=== PATIENT | male | born 1955 | race African-American/Black ===

== ENCOUNTER 2016-09-04 17:22 | Inpatient (IN) | payer OTHER ==
[~2016-09-04] VITALS: Ht 175.3 cm; Wt 63.8 kg
[2016-09-04] MEDS ORDERED: METOPROLOL TAR100 M1 ORAL (17:26)
[2016-09-04] MEDS ORDERED: HYDRALAZINE HCL10 MG ORAL (17:26)
[2016-09-04] MEDS ORDERED: TRAMADOL HCL50 MG ORAL (17:26)
[2016-09-04] MEDS ORDERED: LOVENOX10 M3 SUBQ (17:26)
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
[2016-09-04] MEDS ORDERED: LORazepam Inj 2mg/ml 1ml IV ONE ×4 (17:45→20:00)
[2016-09-04 18:00] VITALS: BP 125/80
[2016-09-04 18:00] LABS: ABG ALLEN TEST POSITIVE; ABG BASE EXCESS -5.4; ABG PCO2 27.5 mmHg (35.0-45.0)
[2016-09-04 18:11] LABS: MEAN CORPUSCULAR HEMOGLOBIN 30.8 PG (27.0-31.0); MEAN CORPUSCULAR HGB CONC 33.2 G/DL (32.0-36.0); MEAN CORPUSCULAR VOLUME 93 FL (80-99); PLATELET COUNT 321 K/UL (150-450); RED BLOOD COUNT 3.02 M/UL (4.70-6.10); RED CELL DISTRIBUTION WIDTH 14.8 % (11.6-14.8)
[2016-09-04 18:28] LABS: TROPONIN I < 0.30 ng/mL (<=0.30)
[2016-09-04 18:32] LABS: ALBUMIN/GLOBULIN RATIO 0.9 (1.0-2.7); CALCIUM 10.3 mg/dL (8.6-10.2); GLOMERULAR FILTRATION RATE 41.6 mL/min (>60); POTASSIUM 4.5 mEQ/L (3.4-4.9); TOTAL PROTEIN 8.7 g/dL (6.6-8.7)
[2016-09-04 18:41] LABS: REFLEX LACTIC ACID YES OR NO YES
[2016-09-04 18:42] LABS: CKMB 2.6 ng/mL (< 6.7)
[2016-09-04] MEDS ORDERED: Acetaminophen 650 MG SUPP RECTAL ONE ×2 (18:45→18:47)
[2016-09-04] MEDS ORDERED: Meropenem 1 GM in NS 110 ML IVPB ONE (18:45)
[2016-09-04 18:48] LABS: APPEARANCE,URINE CLEAR; KETONES,URINE 1+ (NEGATIVE); LEUKOCYTE ESTERASE ,URINE 1+ (NEGATIVE); NITRITE,URINE NEGATIVE (NEGATIVE); PH,URINE 6 (4.5-8.0); PROTEIN,URINE 2+ (NEGATIVE); UROBILINOGEN,URINE NORMAL MG/DL (0.0-1.0)
[2016-09-04] MEDS ORDERED: Meropenem 1gm vial ONE (18:49)
[2016-09-04 18:54] LABS: RBC,URINE 0-2 /HPF (0 - 0); WBC,URINE 0-2 /HPF (0 - 0)
[2016-09-04 19:02] LABS: ANISOCYTOSIS 1+; BAND NEUTROPHILS % (MANUAL) 1 % (0-8); BASOPHILS % (MANUAL) 0 % (0-2); EOSINOPHILS % (MANUAL) 0 % (0-3); LYMPHOCYTES % (MANUAL) 9 % (20-45); NEUTROPHILS % (MANUAL) 85 % (45-75); PLATELET ESTIMATE ADEQUATE; POLYCHROMASIA 1+; TOTAL CELLS COUNTED 100
[2016-09-04 19:03] LABS: PLATELET MORPHOLOGY NORMAL
[2016-09-04] MEDS ORDERED: Haloperidol 5mg/ml Inj IM ONE (19:15)
[2016-09-04] MEDS ORDERED: Miralax 17gm pkt ORAL PRN (19:30)
[2016-09-04] MEDS ORDERED: DuoNeb 0.5-3(2.5)mg/3ml neb HHN PRN (19:30)
[2016-09-04] MEDS ORDERED: Haloperidol 5mg/ml Inj IVPB PRN (19:30)
[2016-09-04 19:48] VITALS: BP 133/155
[2016-09-04 20:03] VITALS: BP 133/155
[2016-09-04] MEDS ORDERED: METOPROLOL TART25 MG GT (20:14)
[2016-09-04] MEDS ORDERED: HYDRALAZINE HCL10 MG GT (20:14)
[2016-09-04] MEDS ORDERED: HIBICLENS118 ML ORAL (20:19)
[2016-09-04] MEDS ORDERED: TRAMADOL HCL50 MG GT (20:22)
[2016-09-04] MEDS ORDERED: Amikacin Rx to dose MISC PRN (20:45)
[2016-09-04] MEDS: D5NS 1,000 ML IV SCH (21:23)
[2016-09-04 21:30] VITALS: BP 119/70
[2016-09-04] MEDS: Heparin 5000 units/ml inj SUBQ SCH (21:31)
[2016-09-04] MEDS: Vancomycin 1 GM in D5W 275 ML IVPB SCH (21:44)
[2016-09-04 22:00] VITALS: BP 95/63
[2016-09-04] MEDS ORDERED: AMIKACIN IV SCH (22:00)
[2016-09-04] MEDS ORDERED: NS IV SCH (22:00)
[2016-09-04 23:00] VITALS: BP 115/59
[2016-09-05] VITALS (24 sets, daily range): BP systolic 91–157; BP diastolic 50–97
[2016-09-05] MEDS: LORazepam Inj 2mg/ml 1ml IV PRN ×6 (01:41→18:37)
[2016-09-05 05:10] LABS: BASOPHILS % (AUTO) 2.7 % (0.0-2.0); LYMPHOCYTES % (AUTO) 14.6 % (20.0-45.0); MEAN CORPUSCULAR HGB CONC 32.2 G/DL (32.0-36.0); MEAN CORPUSCULAR VOLUME 93 FL (80-99); MEAN PLATELET VOLUME 6.5 FL (6.5-10.1); MONOCYTES % (AUTO) 15.4 % (1.0-10.0); NEUTROPHILS % (AUTO) 67.3 % (45.0-75.0); PLATELET COUNT 312 K/UL (150-450); RED BLOOD COUNT 2.72 M/UL (4.70-6.10); RED CELL DISTRIBUTION WIDTH 14.7 % (11.6-14.8); WHITE BLOOD COUNT 12.8 K/UL (4.8-10.8)
[2016-09-05 05:28] LABS: INR 1.2 (0.9-1.1); PROTHROMBIN TIME 12.1 SEC (9.30-11.50)
[2016-09-05 05:41] LABS: ALBUMIN/GLOBULIN RATIO 0.8 (1.0-2.7); BILIRUBIN,DIRECT 0.1 mg/dL (0.1-0.3); CALCIUM 9.4 mg/dL (8.6-10.2); CREATININE 1.5 mg/dL (0.7-1.2); GLOMERULAR FILTRATION RATE 57.8 mL/min (>60); POTASSIUM 4.3 mEQ/L (3.4-4.9); TOTAL PROTEIN 8.3 g/dL (6.6-8.7)
[2016-09-05] MEDS: D5NS 1,000 ML IV SCH (05:41)
[2016-09-05] MEDS: Ertapenem 1 GM in NS 55 ML IV SCH (05:41)
[2016-09-05 05:43] LABS: HEMOLYSIS 2; IRON 31 ug/dL (59-158); TOTAL IRON BINDING CAPACITY 233 ug/dL (250-400)
[2016-09-05 06:02] LABS: REFLEX LACTIC ACID YES OR NO YES
[2016-09-05 06:48] LABS: LACTATE DEHYDROGENASE 581 U/L (135-230)
[2016-09-05] MEDS: Haloperidol Lactate 5 MG in D5W 55 ML IM PRN ×2 (07:54→09:53)
[2016-09-05 08:01] LABS: ABG PCO2 34.1 mmHg (35.0-45.0)
[2016-09-05] MEDS: Pantoprazole Inj IVP SCH (08:14)
[2016-09-05] MEDS: Morphine Sulfate 4mg/ml Inj IVP PRN ×2 (08:14→16:29)
[2016-09-05] MEDS: Heparin 5000 units/ml inj SUBQ SCH ×2 (08:15→20:31)
[2016-09-05 08:25] LABS: RETICULOCYTE COUNT 1.7 % (0.0-2.0)
[2016-09-05] MEDS: chlordiazePOXIDE 25mg Cap ORAL PRN (08:39)
--- NOTE | 2016-09-05 09:44 | Diagnostic Imaging Report ---
Indications: Altered metal status Technique: Spiral acquisitions obtained through the brain. Angled axial and coronal 5 x 5 mm slices were reconstructed. Total dose length product 2713 mGycm. CTDI vol(s) 70x3 mGy. Dose reduction achieved using automated exposure control Comparison: None Findings: Patient unable hold still, despite sedation. Despite multiple acquisitions, there is extensive image degradation due to motion artifact, rendering exam essentially nondiagnostic. No gross acute intracranial hemorrhage is demonstrated. No gross mass effect or midline shift. There is age-related enlargement of the ventricles and extra axial CSF spaces. No definite skull fracture. Visualized orbits and sinuses are grossly unremarkable. Impression: Essentially nondiagnostic exam due to motion artifacts. No gross acute intracranial bleed or mass effect. Age-related changes This agrees with the preliminary interpretation provided overnight by Dr. Machuca The CT scanner at [facility] is accredited by the [employer] and the scans are performed using protocols designed to limit radiation exposure to as low as reasonably achievable to attain images of sufficient resolution adequate for diagnostic evaluation.
--- NOTE | 2016-09-05 10:17 | Diagnostic Imaging Report ---
Indication: DYSPNEA Technique: One view of the chest Comparison: 09/04/2016 Findings: Patchy parenchymal throughout the left lung persists, and is unchanged. There may be trace pleural fluid on the left, likewise unchanged. There is suggestion of some upper lobe scarring on the right. There may be mild interstitial congestion on the right. The heart size is normal. Multiple left rib fractures are again demonstrated. No gross pneumothorax. Findings are unchanged Impression: Unchanged, over one day, findings as above.
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
[2016-09-05] MEDS ORDERED: Tubing IV Secondary IV ONE (10:43)
[2016-09-05] MEDS ORDERED: D5NS 1000ml IV ONE (10:43)
[2016-09-05 10:58] LABS: BAND NEUTROPHILS % (MANUAL) 0 % (0-8); BASOPHILS % (MANUAL) 2 % (0-2); EOSINOPHILS % (MANUAL) 0 % (0-3); LYMPHOCYTES % (MANUAL) 13 % (20-45); NEUTROPHILS % (MANUAL) 67 % (45-75); PLATELET ESTIMATE ADEQUATE; PLATELET MORPHOLOGY NORMAL; TOTAL CELLS COUNTED 100
[2016-09-05 10:59] LABS: HYPOCHROMASIA 1+
[2016-09-05 11:28] LABS: PATH BLOOD SMEAR/OMC SENT TO PATHOLOGIST
[2016-09-05] MEDS: Haloperidol Lactate 5 MG in D5W 55 ML IVPB PRN ×3 (11:54→18:37)
[2016-09-05] MEDS ORDERED: Folic Acid 1 MG, Magnesium Sulfate 2,000 MG, Multivitamin - 12 Injection 10 ML in NS w/... IV SCH (12:00)
[2016-09-05] MEDS: Thiamine HCl 100 MG in D5W 110 ML IVPB SCH (12:00)
--- NOTE | 2016-09-05 12:13 | Diagnostic Imaging Report ---
Indication: Abnormal renal function tests Technique: Grayscale and duplex images of the kidneys, retroperitoneum, and bladder were obtained. Comparison:None Findings: Right kidney measures 9.4 cm in length. Left kidney measures 10.7 cm in length. Both kidneys demonstrate normal echogenicity. No hydronephrosis. No focal abnormality. Normal inferior vena cava. Bladder is normal. Impression: negative.
--- NOTE | 2016-09-05 12:29 | Cardiology Report ---
APPROVED REPORT EKG Measurement Heart [id number] Sinus tachycardia Possible Left atrial enlargement Borderline ECG
--- NOTE | 2016-09-05 12:40 | Consultation ---
Consult Note Consult Note [id number] SUNG BREWER M.D. Sep 05, 2016 12:40
[2016-09-05 12:45] LABS: REFLEX LACTIC ACID YES OR NO YES
--- NOTE | 2016-09-05 13:38 | Diagnostic Imaging Report ---
Indication: Altered mental status Technique: One view of the chest Comparison: none Findings: There is pleural thickening on the left, both laterally and at the apex. There are multiple left rib fracture deformities of indeterminate acuity. There is interstitial and alveolar disease throughout the left lung. There is right apical volume loss and likely probable scarring. Right pleural space is clear. Heart size is normal Impression: Left lung parenchymal disease, as described, may reflect infiltrate, effusions, or chronic changes Multiple left fracture deformities, of indeterminate acuity. Correlate with clinical findings Left-sided pleural thickening, suspect chronic Evidence of chronic parenchymal scarring at the right lung apex
--- NOTE | 2016-09-05 16:09 | Diagnostic Imaging Report ---
Indication: ABD PAIN abnormal liver function tests Technique: Tan-scale and duplex images of the upper abdomen were obtained Comparison: None Findings: Gallbladder demonstrates no evidence of stones. Gallbladder wall is mildly thickened, measuring 5 mm thick. Sonographic Marin's sign is negative. Common bile duct measures 4 mm in diameter. No intrahepatic biliary ductal dilatation. Liver demonstrates normal echogenicity, no focal abnormality. Portal vein and hepatic veins are patent. Pancreas is incompletely visualized due to overlying bowel gas, visualized portions are unremarkable. Spleen is unremarkable. Left kidney measures 11.1 cm in length. Right kidney measures 9.3 cm length. Both kidneys demonstrate normal echogenicity. There is no hydronephrosis. No focal abnormality . Abdominal aorta is obscured by bowel gas . Impression: Negative for gallstones. However, there is mild gallbladder wall thickening. This could be reactive related to adjacent hepatocellular disease, but does raise possibility of acute acalculous cholecystitis. Consider nuclear medicine hepatobiliary scan if there is high clinical suspicion Negative for dilated ducts No other significant abnormality. Note inability to visualize the abdominal aorta and portions of the pancreas
[2016-09-05 19:23] LABS: REFLEX LACTIC ACID YES OR NO YES
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
[2016-09-05] MEDS: Vancomycin 1 GM in D5W 275 ML IVPB SCH (20:29)
[2016-09-05] MEDS: Iron Sucrose 100 MG in NS 55 ML IVPB SCH (20:30)
[2016-09-05] MEDS: AMIKACIN IV SCH (21:32)
[2016-09-05] MEDS: NS IV SCH (21:32)
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
[2016-09-06] VITALS (24 sets, daily range): BP systolic 121–185; BP diastolic 62–156
[2016-09-06] MEDS: D5NS 1,000 ML IV SCH ×2 (01:29→12:38)
[2016-09-06] MEDS: Morphine Sulfate 4mg/ml Inj IVP PRN ×2 (03:59→08:21)
[2016-09-06] MEDS: Haloperidol Lactate 5 MG in D5W 55 ML IVPB PRN ×3 (04:32→21:08)
[2016-09-06 05:13] LABS: MEAN CORPUSCULAR HEMOGLOBIN 30.7 PG (27.0-31.0); MEAN CORPUSCULAR HGB CONC 32.6 G/DL (32.0-36.0); MEAN CORPUSCULAR VOLUME 94 FL (80-99); MEAN PLATELET VOLUME 7.2 FL (6.5-10.1); PLATELET COUNT 246 K/UL (150-450); RED BLOOD COUNT 2.52 M/UL (4.70-6.10); RED CELL DISTRIBUTION WIDTH 14.9 % (11.6-14.8); WHITE BLOOD COUNT 14.5 K/UL (4.8-10.8)
[2016-09-06] MEDS: Ertapenem 1 GM in NS 55 ML IV SCH (05:37)
[2016-09-06] MEDS: chlordiazePOXIDE 25mg Cap ORAL PRN (05:41)
[2016-09-06] MEDS: LORazepam Inj 2mg/ml 1ml IV PRN ×3 (05:47→18:55)
[2016-09-06 06:06] LABS: ALANINE AMINOTRANSFERASE 26 U/L (3-41); ALBUMIN/GLOBULIN RATIO 0.7 (1.0-2.7); ANION GAP 18 (5-15); ASPARTATE AMINO TRANSFERASE 106 U/L (5-40); CALCIUM 9.2 mg/dL (8.6-10.2); CARBON DIOXIDE 17 mEQ/L (20-30); CHLORIDE 114 mEQ/L (98-107); CREATININE 1.1 mg/dL (0.7-1.2); GLOMERULAR FILTRATION RATE > 60 mL/min (>60); HEMOLYSIS 12; MAGNESIUM 2.4 mg/dL (1.7-2.5); PHOSPHORUS 3.1 mg/dL (2.5-4.8); POTASSIUM 4.1 mEQ/L (3.4-4.9); SODIUM 149 mEQ/L (135-145); TOTAL PROTEIN 7.9 g/dL (6.6-8.7)
[2016-09-06 06:07] LABS: REFLEX LACTIC ACID YES OR NO YES
[2016-09-06 08:15] LABS: ANISOCYTOSIS 1+; BAND NEUTROPHILS % (MANUAL) 0 % (0-8); BASOPHILS % (MANUAL) 0 % (0-2); EOSINOPHILS % (MANUAL) 2 % (0-3); HYPOCHROMASIA 1+; LYMPHOCYTES % (MANUAL) 9 % (20-45); NEUTROPHILS % (MANUAL) 84 % (45-75); PLATELET ESTIMATE ADEQUATE; PLATELET MORPHOLOGY NORMAL; POIKILOCYTOSIS 1+; TARGET CELLS OCCASIONAL; TOTAL CELLS COUNTED 100
[2016-09-06 08:16] LABS: POLYCHROMASIA OCCASIONAL
[2016-09-06] MEDS: Pantoprazole Inj IVP SCH (08:21)
[2016-09-06] MEDS: Heparin 5000 units/ml inj SUBQ SCH ×2 (08:22→20:44)
[2016-09-06 08:52] LABS: ABG PCO2 28.7 mmHg (35.0-45.0)
[2016-09-06 08:53] LABS: ABG ALLEN TEST POSITIVE; ABG BASE EXCESS -4.5
[2016-09-06] MEDS: Thiamine HCl 100 MG in D5W 110 ML IVPB SCH (09:29)
--- NOTE | 2016-09-06 10:47 | Pulmonolgy Critical Care Note ---
Critical Care - Asmt/Plan Problems: (1) Sepsis (2) Acute encephalopathy (3) Tachycardia (4) Lactic acidosis (5) Feeding by G-tube Respiratory: monitor respiratory rate, adjust FIO2, CXR, other - to be seen by ENT Yanna meek Cardiac: continue to monitor HR/BP, stress echo - echo results noted, to be seen by Cardiolgoy, dR. Kelly Renal: F/U I&O, keep IV fluid, check electrolytes Infectious Disease: check cultures, continue antibiotics Gastrointestinal: start feedings Endocrine: monitor blood sugar, check HgA1C Hematologic: monitor H/H Neurologic: PRN Ativan Affect: PRN ativan Prophylaxis: Protonix Notes Reviewed: accounting intern, cardio, renal Discussed with: nurses, consultants, case finishermarine service manager - Objective Last 24 Hour Vital Signs Date Time Temp Pulse Resp B/P Pulse Ox O2 Delivery O2 Flow Rate FiO2 09/06/16 10:00 135 28 139/87 100 Simple Mask 6.0 09/06/16 09:00 137 28 152/72 100 Nasal Cannula 3.0 09/06/16 08:50 99.3 09/06/16 08:00 99.3 140 26 150/72 98 Nasal Cannula 3.0 09/06/16 08:00 139 09/06/16 07:16 98 Nasal Cannula 3.0 32 09/06/16 07:16 Nasal Cannula 3.0 32 09/06/16 07:16 124 32 Nasal Cannula 3.0 32 09/06/16 07:00 137 28 142/92 100 Nasal Cannula 3.0 09/06/16 06:00 138 28 157/75 100 Nasal Cannula 3.0 09/06/16 05:00 137 43 121/64 100 Nasal Cannula 3.0 09/06/16 04:00 143 09/06/16 04:00 98.9 143 33 165/88 100 Nasal Cannula 3.0 09/06/16 03:00 140 46 184/156 100 Nasal Cannula 3.0 09/06/16 02:00 139 37 162/78 98 Nasal Cannula 3.0 09/06/16 01:00 137 33 142/79 96 Nasal Cannula 3.0 09/06/16 00:00 138 09/06/16 00:00 98.3 138 37 185/94 98 Nasal Cannula 3.0 09/05/16 23:00 135 37 156/77 98 Nasal Cannula 3.0 09/05/16 22:00 140 35 157/67 98 Nasal Cannula 3.0 09/05/16 21:00 98.7 138 32 140/83 96 Nasal Cannula 3.0 09/05/16 20:00 140 40 146/79 98 Nasal Cannula 3.0 09/05/16 20:00 140 09/05/16 19:00 Nasal Cannula 2.0 28 09/05/16 19:00 135 28 140/93 94 Nasal Cannula 3.0 09/05/16 18:59 97 Nasal Cannula 3.0 32 09/05/16 18:59 142 38 Nasal Cannula 3.0 32 09/05/16 18:00 138 28 139/79 95 Nasal Cannula 3.0 09/05/16 17:00 140 30 138/74 95 Nasal Cannula 3.0 09/05/16 16:00 136 09/05/16 16:00 98.9 132 26 134/82 100 Nasal Cannula 3.0 09/05/16 15:00 120 20 119/62 98 Nasal Cannula 3.0 09/05/16 14:00 121 24 129/70 98 Nasal Cannula 3.0 09/05/16 13:00 130 24 120/65 100 Nasal Cannula 3.0 09/05/16 12:00 99.1 133 26 151/94 100 Nasal Cannula 3.0 09/05/16 12:00 139 09/05/16 11:00 143 24 123/55 95 Nasal Cannula 3.0 09/05/16 10:50 99.3 Status: awake Condition: critical HEENT: atraumatic Neck: full ROM Lungs: chest wall tender Heart: regular Abdomen: non-tender, active bowel sounds, feeding tube Extremities: no C/C/E, edema Decubiti: stage Micro: Microbiology Date/Time Source Procedure Growth Status 09/04/16 17:45 Blood Blood Culture - Preliminary NO GROWTH AFTER 24 HOURS Resulted 09/04/16 17:45 Blood Blood Culture - Preliminary NO GROWTH AFTER 24 HOURS Resulted 09/05/16 17:00 Sputum Gram Stain Pending Resulted 09/05/16 17:00 Sputum Sputum Culture - Preliminary Resulted 09/05/16 17:00 Urine,Clean Catch Urine Culture - Preliminary NO GROWTH Resulted Accucheck: 76 Critical Care - Subjective ROS Limited/Unobtainable: No ICU Day: 3 Interval Events: still tachycardic, awake, confused Condition: critical EKG Rhythm: Sinus Rhythm FI02: 32 Sputum Amount: None I&O: Intake and Output 09/05/16 09/06/16 19:00 07:00 Intake Total 1766 ml 763.6 ml Output Total 1030 ml 1020 ml Balance 736 ml -256.4 ml IV Total 1766 ml 763.6 ml Output Urine Total 1030 ml 1020 ml CXR: unchanged, patchy infiltrate Labs: Laboratory Tests Test 09/05/16 12:00 09/05/16 18:52 09/06/16 04:30 09/06/16 04:45 Lactic Acid Level 3.40 mmol/L (0.66-2.22) H 2.10 mmol/L (0.66-2.22) 2.10 mmol/L (0.66-2.22) Random Amikacin Level 5.1 ug/mL White Blood Count 14.5 K/UL (4.8-10.8) H Red Blood Count 2.52 M/UL (4.70-6.10) L Hemoglobin 7.7 G/DL (14.2-18.0) L Hematocrit 23.7 % (42.0-52.0) L Mean Corpuscular Volume 94 FL (80-99) Mean Corpuscular Hemoglobin 30.7 PG (27.0-31.0) Mean Corpuscular Hemoglobin Concent 32.6 G/DL (32.0-36.0) Red Cell Distribution Width 14.9 % (11.6-14.8) H Platelet Count 246 K/UL (150-450) Mean Platelet Volume 7.2 FL (6.5-10.1) Neutrophils (%) (Auto) % (45.0-75.0) Lymphocytes (%) (Auto) % (20.0-45.0) Monocytes (%) (Auto) % (1.0-10.0) Eosinophils (%) (Auto) % (0.0-3.0) Basophils (%) (Auto) % (0.0-2.0) Differential Total Cells Counted 100 Neutrophils % (Manual) 84 % (45-75) H Lymphocytes % (Manual) 9 % (20-45) L Monocytes % (Manual) 5 % (1-10) Eosinophils % (Manual) 2 % (0-3) Basophils % (Manual) 0 % (0-2) Band Neutrophils 0 % (0-8) Platelet Estimate Adequate Platelet Morphology Normal Red Blood Cell Morphology Polychromasia Occasional Hypochromasia 1+ Poikilocytosis 1+ Anisocytosis 1+ Target Cells Occasional Sodium Level 149 mEQ/L (135-145) H Potassium Level 4.1 mEQ/L (3.4-4.9) Chloride Level 114 mEQ/L (98-107) H Carbon Dioxide Level 17 mEQ/L (20-30) L Anion Gap 18 (5-15) H Blood Urea Nitrogen 21 mg/dL (7-23) Creatinine 1.1 mg/dL (0.7-1.2) Estimat Glomerular Filtration Rate > 60 mL/min (>60) Glucose Level 115 mg/dL (74-106) H Calcium Level 9.2 mg/dL (8.6-10.2) Phosphorus Level 3.1 mg/dL (2.5-4.8) Magnesium Level 2.4 mg/dL (1.7-2.5) Total Bilirubin 0.3 mg/dL (0.0-1.2) Aspartate Amino Transf (AST/SGOT) 106 U/L (5-40) H Alanine Aminotransferase (ALT/SGPT) 26 U/L (3-41) Alkaline Phosphatase 157 U/L (40-129) H Total Protein 7.9 g/dL (6.6-8.7) Albumin 3.5 g/dL (3.5-5.2) Globulin 4.4 g/dL Albumin/Globulin Ratio 0.7 (1.0-2.7) L Test 09/06/16 08:42 09/06/16 09:20 Arterial Blood pH 7.438 (7.350-7.450) Arterial Blood Partial Pressure CO2 28.7 mmHg (35.0-45.0) L Arterial Blood Partial Pressure O2 65.1 mmHg (75.0-100.0) L Arterial Blood HCO3 19.0 mmol/L (22.0-26.0) L Arterial Blood Oxygen Saturation 90.0 % (92.0-98.0) L Arterial Blood Base Excess -4.5 Raul Test Positive Lactic Acid Level Pending ALLY MURRAY Sep 06, 2016 10:47
[2016-09-06] MEDS: Acetaminophen 650 MG SUPP RECTAL PRN ×2 (12:44→16:51)
[2016-09-06 13:28] LABS: ABG PCO2 31.3 mmHg (35.0-45.0)
[2016-09-06 13:29] LABS: ABG ALLEN TEST POSITIVE
[2016-09-06] MEDS: Morphine Sulfate 10mg/ml Inj IVP PRN (15:12)
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
--- NOTE | 2016-09-06 17:36 | Cardiology Progress Note ---
Assessment/Plan Assessment/Plan tachy sinus demand aand agitation realted [id number] Objective Last 24 Hour Vital Signs Date Time Temp Pulse Resp B/P Pulse Ox O2 Delivery O2 Flow Rate FiO2 09/06/16 17:00 101.1 130 30 153/78 100 Simple Mask 6.0 09/06/16 16:00 128 09/06/16 16:00 100.4 126 30 138/80 100 Simple Mask 6.0 09/06/16 15:40 100.4 09/06/16 15:00 128 28 154/62 100 Simple Mask 6.0 09/06/16 14:00 133 28 142/86 100 Simple Mask 6.0 09/06/16 13:10 101.2 09/06/16 13:00 101.2 132 24 132/95 98 Simple Mask 6.0 09/06/16 12:00 102.8 130 24 145/88 100 Simple Mask 6.0 09/06/16 12:00 132 09/06/16 11:00 132 24 137/95 100 Simple Mask 6.0 09/06/16 10:00 135 28 139/87 100 Simple Mask 6.0 09/06/16 09:00 137 28 152/72 100 Nasal Cannula 3.0 09/06/16 08:50 99.3 09/06/16 08:00 99.3 140 26 150/72 98 Nasal Cannula 3.0 09/06/16 08:00 139 09/06/16 07:16 98 Nasal Cannula 3.0 32 09/06/16 07:16 Nasal Cannula 3.0 32 09/06/16 07:16 124 32 Nasal Cannula 3.0 32 09/06/16 07:00 137 28 142/92 100 Nasal Cannula 3.0 09/06/16 06:00 138 28 157/75 100 Nasal Cannula 3.0 09/06/16 05:00 137 43 121/64 100 Nasal Cannula 3.0 09/06/16 04:00 143 09/06/16 04:00 98.9 143 33 165/88 100 Nasal Cannula 3.0 09/06/16 03:00 140 46 184/156 100 Nasal Cannula 3.0 09/06/16 02:00 139 37 162/78 98 Nasal Cannula 3.0 09/06/16 01:00 137 33 142/79 96 Nasal Cannula 3.0 09/06/16 00:00 138 09/06/16 00:00 98.3 138 37 185/94 98 Nasal Cannula 3.0 09/05/16 23:00 135 37 156/77 98 Nasal Cannula 3.0 09/05/16 22:00 140 35 157/67 98 Nasal Cannula 3.0 09/05/16 21:00 98.7 138 32 140/83 96 Nasal Cannula 3.0 09/05/16 20:00 140 40 146/79 98 Nasal Cannula 3.0 09/05/16 20:00 140 09/05/16 19:00 Nasal Cannula 2.0 28 09/05/16 19:00 135 28 140/93 94 Nasal Cannula 3.0 09/05/16 18:59 97 Nasal Cannula 3.0 32 09/05/16 18:59 142 38 Nasal Cannula 3.0 32 09/05/16 18:00 138 28 139/79 95 Nasal Cannula 3.0 Intake and Output 09/05/16 09/06/16 19:00 07:00 Intake Total 1766 ml 763.6 ml Output Total 1030 ml 1020 ml Balance 736 ml -256.4 ml IV Total 1766 ml 763.6 ml Output Urine Total 1030 ml 1020 ml Laboratory Tests Test 09/05/16 18:52 09/06/16 04:30 09/06/16 04:45 09/06/16 08:42 Lactic Acid Level 2.10 mmol/L (0.66-2.22) 2.10 mmol/L (0.66-2.22) White Blood Count 14.5 K/UL (4.8-10.8) H Red Blood Count 2.52 M/UL (4.70-6.10) L Hemoglobin 7.7 G/DL (14.2-18.0) L Hematocrit 23.7 % (42.0-52.0) L Mean Corpuscular Volume 94 FL (80-99) Mean Corpuscular Hemoglobin 30.7 PG (27.0-31.0) Mean Corpuscular Hemoglobin Concent 32.6 G/DL (32.0-36.0) Red Cell Distribution Width 14.9 % (11.6-14.8) H Platelet Count 246 K/UL (150-450) Mean Platelet Volume 7.2 FL (6.5-10.1) Neutrophils (%) (Auto) % (45.0-75.0) Lymphocytes (%) (Auto) % (20.0-45.0) Monocytes (%) (Auto) % (1.0-10.0) Eosinophils (%) (Auto) % (0.0-3.0) Basophils (%) (Auto) % (0.0-2.0) Differential Total Cells Counted 100 Neutrophils % (Manual) 84 % (45-75) H Lymphocytes % (Manual) 9 % (20-45) L Monocytes % (Manual) 5 % (1-10) Eosinophils % (Manual) 2 % (0-3) Basophils % (Manual) 0 % (0-2) Band Neutrophils 0 % (0-8) Platelet Estimate Adequate Platelet Morphology Normal Red Blood Cell Morphology Polychromasia Occasional Hypochromasia 1+ Poikilocytosis 1+ Anisocytosis 1+ Target Cells Occasional Sodium Level 149 mEQ/L (135-145) H Potassium Level 4.1 mEQ/L (3.4-4.9) Chloride Level 114 mEQ/L (98-107) H Carbon Dioxide Level 17 mEQ/L (20-30) L Anion Gap 18 (5-15) H Blood Urea Nitrogen 21 mg/dL (7-23) Creatinine 1.1 mg/dL (0.7-1.2) Estimat Glomerular Filtration Rate > 60 mL/min (>60) Glucose Level 115 mg/dL (74-106) H Calcium Level 9.2 mg/dL (8.6-10.2) Phosphorus Level 3.1 mg/dL (2.5-4.8) Magnesium Level 2.4 mg/dL (1.7-2.5) Total Bilirubin 0.3 mg/dL (0.0-1.2) Aspartate Amino Transf (AST/SGOT) 106 U/L (5-40) H Alanine Aminotransferase (ALT/SGPT) 26 U/L (3-41) Alkaline Phosphatase 157 U/L (40-129) H Total Protein 7.9 g/dL (6.6-8.7) Albumin 3.5 g/dL (3.5-5.2) Globulin 4.4 g/dL Albumin/Globulin Ratio 0.7 (1.0-2.7) L Arterial Blood pH 7.438 (7.350-7.450) Arterial Blood Partial Pressure CO2 28.7 mmHg (35.0-45.0) L Arterial Blood Partial Pressure O2 65.1 mmHg (75.0-100.0) L Arterial Blood HCO3 19.0 mmol/L (22.0-26.0) L Arterial Blood Oxygen Saturation 90.0 % (92.0-98.0) L Arterial Blood Base Excess -4.5 Raul Test Positive Test 09/06/16 09:20 09/06/16 13:10 Lactic Acid Level 2.00 mmol/L (0.66-2.22) Arterial Blood pH 7.400 (7.350-7.450) Arterial Blood Partial Pressure CO2 31.3 mmHg (35.0-45.0) L Arterial Blood Partial Pressure O2 101.6 mmHg (75.0-100.0) H Arterial Blood HCO3 19.1 mmol/L (22.0-26.0) L Arterial Blood Oxygen Saturation 97.1 % (92.0-98.0) Arterial Blood Base Excess -5.0 Raul Test Positive Microbiology Date/Time Source Procedure Growth Status 09/04/16 17:45 Blood Blood Culture - Preliminary NO GROWTH AFTER 24 HOURS Resulted 09/04/16 17:45 Blood Blood Culture - Preliminary NO GROWTH AFTER 24 HOURS Resulted 09/05/16 17:00 Sputum Gram Stain - Final Resulted 09/05/16 17:00 Sputum Sputum Culture - Preliminary Resulted 09/05/16 17:00 Urine,Clean Catch Urine Culture - Preliminary NO GROWTH Resulted KATERYNA COVARRUBIAS Sep 06, 2016 17:36
[2016-09-06 18:19] LABS: MEAN CORPUSCULAR HGB CONC 33.6 G/DL (32.0-36.0); MEAN CORPUSCULAR VOLUME 95 FL (80-99); MEAN PLATELET VOLUME 6.5 FL (6.5-10.1); PLATELET COUNT 210 K/UL (150-450); RED BLOOD COUNT 2.52 M/UL (4.70-6.10); RED CELL DISTRIBUTION WIDTH 15.4 % (11.6-14.8); WHITE BLOOD COUNT 19.4 K/UL (4.8-10.8)
[2016-09-06 18:20] LABS: BASOPHILS % (AUTO) 1.7 % (0.0-2.0); LYMPHOCYTES % (AUTO) 5.9 % (20.0-45.0); MONOCYTES % (AUTO) 9.5 % (1.0-10.0); NEUTROPHILS % (AUTO) 82.9 % (45.0-75.0)
[2016-09-06 18:33] LABS: ALANINE AMINOTRANSFERASE 25 U/L (3-41); ALBUMIN/GLOBULIN RATIO 0.7 (1.0-2.7); ANION GAP 14 (5-15); ASPARTATE AMINO TRANSFERASE 85 U/L (5-40); CALCIUM 9.1 mg/dL (8.6-10.2); CARBON DIOXIDE 22 mEQ/L (20-30); CHLORIDE 119 mEQ/L (98-107); CREATININE 0.9 mg/dL (0.7-1.2); GLOMERULAR FILTRATION RATE > 60 mL/min (>60); HEMOLYSIS 0; POTASSIUM 4.5 mEQ/L (3.4-4.9); SODIUM 155 mEQ/L (135-145); TOTAL PROTEIN 8.1 g/dL (6.6-8.7)
--- NOTE | 2016-09-06 19:15 | Procedure Note ---
SURGEON: Jairon Raines M.D. [employer]: None. ANESTHESIA: None. INDICATION FOR PROCEDURE: The patient pulled out his tracheostomy tube two days ago, seems to be stable, but is tachycardiac and I have been asked to evaluate the upper airway. PREOPERATIVE DIAGNOSIS: Upper airway is open without blockage. PREOPERATIVE DIAGNOSIS: Upper airway is open without blockage. FINDINGS: Although, he has some dried mucus, his vocal cords are moving poorly, is at midline, does not vocalize well. He does have a safe airway without any blockage at least to the vocal cords and I actually was able to pass the scope beyond that all way to visualize the aiden and it seemed okay to that point. PROCEDURE: Fiberoptic laryngoscopy. TECHNIQUE: The scope was placed through the mouth looking down at the oral airway and then the scope was pulled back. FINDINGS: As above. ESTIMATED BLOOD LOSS: Zero. COMPLICATIONS: None. DRAINS: None. Jairon Raines M.D. DR: CECI JOB#: [id number] CC:
--- NOTE | 2016-09-06 19:45 | Consultation ---
DATE OF CONSULTATION: 09/06/2016 HEAD AND NECK SURGERY/ENT CONSULTATION REFERRING PHYSICIAN: Vandana Tello M.D. CONSULTING PHYSICIAN: Jairon Raines M.D. INDICATION FOR CONSULTATION: The patient lives in a [facility], who has tachycardia status post removing his trach at the [facility]. His oxygenation is fine on room air, but they are concerned he may have some blockage in his airway leading to the issue of tachycardia. I did speak with Dr. Tello and he notes that the said he was intubated for respiratory difficulties with pneumonia and was not able to tolerate without a trach. It has now been two days without the trach and he seems to be doing fine and it is covered with an occlusive dressing. PAST MEDICAL HISTORY: Incomplete. What I can get from the record is his past medical history is significant for cardiac disorders, thrombolytics therapy, palpitations, hypertension, respiratory issues, chronic obstructive pulmonary disease, endocrine disorders, diabetes, alcohol use, and substance abuse. MEDICATIONS: His medications include Tylenol, morphine, amikacin, iron sucrose, folic acid, thiamine, lorazepam, haloperidol, lactate, Protonix, Librium, vancomycin, heparin 5000 units, amikacin, vancomycin, albuterol, MiraLAX, and Zofran. OBJECTIVE: HEENT: The patient is restrained in bed and not completely responsive. He do not seem to understand what I am saying to him. He is missing many teeth in his mouth. None on the upper maxilla. Ears, positive light reflex. Normal canals. Nose, normal. Mouth is very dry. He has a G-tube. Fiberoptic exam, his epiglottis is normal. His airway supraglottic yields a lot of dried mucus crust, but his airway is open. His vocal cords are not really moving well. So, I am not sure how I would feed him, although he seems to be handling wet secretions he does have. So, I would do a swallowing study first and check that. ASSESSMENT: His airway seems to be fine at the moment from what I can ascertain from the fiberoptic exam, and his chest x-ray, which would allow me to see below the vocal cords. He does have some parenchymal disease, which is separate. PLAN: I would recommend a swallowing study by speech pathology once he is more stable, although I think he does not need a trach at this time. Swallowing study would be for feeding reasons if you can proceed with that. Thank you very much for asking my opinion in the care and treatment on this patient. Jairon Raines M.D. DR: SHAYE JOB#: [id number] CC:
[2016-09-06] MEDS: Iron Sucrose 100 MG in NS 55 ML IVPB SCH (20:44)
[2016-09-06] MEDS: Vancomycin 1 GM in D5W 275 ML IVPB SCH (20:44)
[2016-09-06] MEDS: NS IV SCH (21:34)
[2016-09-06] MEDS: AMIKACIN IV SCH (21:34)
[2016-09-06] MEDS ORDERED: NS Irrig 2000ml IRRIG ONE (22:51)
[2016-09-06] MEDS ORDERED: D5NS 1000ml IV ONE (22:51)
[2016-09-06] MEDS ORDERED: Tubing IV Secondary IV ONE (22:51)
[2016-09-06] MEDS ORDERED: NS 275ml ONE (22:51)
[2016-09-07] VITALS (24 sets, daily range): BP systolic 96–163; BP diastolic 53–90
[2016-09-07] MEDS: Morphine Sulfate 10mg/ml Inj IVP PRN ×2 (00:06→15:09)
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
[2016-09-07] MEDS: D5NS 1,000 ML IV SCH (01:32)
[2016-09-07] MEDS: LORazepam Inj 2mg/ml 1ml IV PRN ×2 (01:39→15:08)
[2016-09-07] MEDS: Ertapenem 1 GM in NS 55 ML IV SCH (05:35)
[2016-09-07 06:45] LABS: MEAN CORPUSCULAR HEMOGLOBIN 30.4 PG (27.0-31.0); MEAN CORPUSCULAR HGB CONC 31.4 G/DL (32.0-36.0); MEAN CORPUSCULAR VOLUME 97 FL (80-99); MEAN PLATELET VOLUME 6.9 FL (6.5-10.1); PLATELET COUNT 219 K/UL (150-450); RED BLOOD COUNT 2.75 M/UL (4.70-6.10); RED CELL DISTRIBUTION WIDTH 15.5 % (11.6-14.8); WHITE BLOOD COUNT 19.5 K/UL (4.8-10.8)
[2016-09-07 06:57] LABS: ALANINE AMINOTRANSFERASE 24 U/L (3-41); ALBUMIN/GLOBULIN RATIO 0.7 (1.0-2.7); ANION GAP 13 (5-15); ASPARTATE AMINO TRANSFERASE 74 U/L (5-40); CALCIUM 8.9 mg/dL (8.6-10.2); CARBON DIOXIDE 23 mEQ/L (20-30); CHLORIDE 117 mEQ/L (98-107); CREATININE 0.8 mg/dL (0.7-1.2); GLOMERULAR FILTRATION RATE > 60 mL/min (>60); HEMOLYSIS 3; MAGNESIUM 2.2 mg/dL (1.7-2.5); PHOSPHORUS 3.1 mg/dL (2.5-4.8); POTASSIUM 4.3 mEQ/L (3.4-4.9); SODIUM 153 mEQ/L (135-145); TOTAL PROTEIN 7.7 g/dL (6.6-8.7)
[2016-09-07] MEDS: Pantoprazole Inj IVP SCH (08:41)
[2016-09-07] MEDS: Heparin 5000 units/ml inj SUBQ SCH ×2 (08:42→20:42)
[2016-09-07 09:12] LABS: BAND NEUTROPHILS % (MANUAL) 4 % (0-8); LYMPHOCYTES % (MANUAL) 10 % (20-45); NEUTROPHILS % (MANUAL) 76 % (45-75); TOTAL CELLS COUNTED 100
[2016-09-07 09:13] LABS: ANISOCYTOSIS 1+; BASOPHILS % (MANUAL) 0 % (0-2); EOSINOPHILS % (MANUAL) 0 % (0-3); HYPOCHROMASIA 1+; PLATELET ESTIMATE ADEQUATE; PLATELET MORPHOLOGY NORMAL
--- NOTE | 2016-09-07 09:25 | Diagnostic Imaging Report ---
Indication: DYSPNEA Technique: XRAY CHEST 1 V Comparison:09/06/2016 Findings: Compared previous examination bilateral airspace disease is increasing. The right hemidiaphragm is partially obscured. The cardio mediastinal silhouette is unchanged. Impression: Increasing bilateral airspace disease consistent with pneumonia or edema.
--- NOTE | 2016-09-07 11:44 | Consultation ---
Consult Note Assessment/Plan Renal consult dictated # [id number] KEVIN STARR Sep 07, 2016 11:44
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
--- NOTE | 2016-09-07 16:00 | Pulmonolgy Critical Care Note ---
Critical Care - Asmt/Plan Problems: (1) Sepsis (2) Acute encephalopathy (3) Tachycardia (4) Lactic acidosis (5) Feeding by G-tube Respiratory: monitor respiratory rate, adjust FIO2, CXR, other - ENT note appreciated Cardiac: continue to monitor HR/BP Renal: F/U I&O, keep IV fluid, check electrolytes Infectious Disease: check cultures Gastrointestinal: continue feedings/current rate Endocrine: monitor blood sugar, check HgA1C, continue sliding scale insulin Hematologic: monitor H/H, transfuse if hgb<8.5 Neurologic: PRN Ativan, PRN Morphine, keep patient comfortable Affect: PRN ativan Prophylaxis: Protonix Notes Reviewed: cardio, renal Discussed with: nurses, consultants, case technicianarea loss prevention manager - Objective Last 24 Hour Vital Signs Date Time Temp Pulse Resp B/P Pulse Ox O2 Delivery O2 Flow Rate FiO2 09/07/16 15:39 99.7 09/07/16 15:00 112 25 139/83 98 Simple Mask 6.0 09/07/16 14:00 99.4 106 18 131/64 100 Simple Mask 6.0 09/07/16 13:00 108 22 120/79 98 Simple Mask 6.0 09/07/16 12:00 112 09/07/16 12:00 99.1 110 22 145/76 100 Simple Mask 6.0 09/07/16 11:30 99.4 09/07/16 11:00 100.2 102 18 101/53 98 Simple Mask 6.0 09/07/16 10:00 108 22 126/79 98 Simple Mask 6.0 09/07/16 09:00 105 18 124/89 100 Simple Mask 6.0 09/07/16 08:00 97.6 98 24 122/66 100 Simple Mask 6.0 09/07/16 08:00 98 09/07/16 07:24 Nasal Cannula 3.0 32 09/07/16 07:24 100 Nasal Cannula 3.0 32 09/07/16 07:24 100 18 Nasal Cannula 3.0 32 09/07/16 07:00 99 26 106/68 100 Simple Mask 6.0 09/07/16 06:00 126 26 145/83 100 Simple Mask 6.0 09/07/16 05:00 100 26 103/65 100 Simple Mask 6.0 09/07/16 04:00 100 09/07/16 04:00 98.3 97 26 96/66 100 Simple Mask 6.0 09/07/16 03:00 111 26 157/87 100 Simple Mask 6.0 09/07/16 02:00 111 26 157/87 100 Simple Mask 6.0 09/07/16 01:00 97.8 128 24 153/60 100 Simple Mask 6.0 09/07/16 00:00 125 26 163/90 100 Simple Mask 6.0 09/07/16 00:00 123 09/06/16 23:00 99.7 132 24 167/104 100 Simple Mask 6.0 09/06/16 22:00 98.7 123 24 154/82 100 Simple Mask 6.0 09/06/16 21:00 99.0 123 24 165/97 100 Simple Mask 6.0 09/06/16 20:00 100.0 128 26 149/91 100 Simple Mask 6.0 09/06/16 20:00 127 09/06/16 19:00 139 28 165/82 100 Simple Mask 6.0 09/06/16 18:00 100.0 136 30 126/77 100 Simple Mask 6.0 09/06/16 17:21 101.0 09/06/16 17:00 101.1 130 30 153/78 100 Simple Mask 6.0 09/06/16 16:00 128 09/06/16 16:00 100.4 126 30 138/80 100 Simple Mask 6.0 Status: awake Condition: critical HEENT: atraumatic Neck: full ROM Lungs: chest wall tender Heart: HR/BP stable Abdomen: non-tender, feeding tube Extremities: edema Micro: Microbiology Date/Time Source Procedure Growth Status 09/04/16 17:45 Blood Blood Culture - Preliminary NO GROWTH AFTER 48 HOURS Resulted 09/04/16 17:45 Blood Blood Culture - Preliminary NO GROWTH AFTER 48 HOURS Resulted 09/05/16 17:00 Sputum Gram Stain - Final Complete 09/05/16 17:00 Sputum Sputum Culture - Final NORMAL UPPER RESPIRATORY SRIDHAR AT 48 ... Complete 09/04/16 19:17 Nasal Not Otherwise Specified MRSA Culture - Final NO METHICILLIN RESISTANT STAPH AUREUS... Complete 09/05/16 17:00 Urine,Clean Catch Urine Culture - Final Complete 09/04/16 19:17 Rectum VRE Culture - Final Enterococcus Faecalis - Vre Complete Accucheck: 76 Critical Care - Subjective ROS Limited/Unobtainable: No Condition: critical EKG Rhythm: Sinus Rhythm FI02: 32 Sputum Amount: None Tube Feeding Amount: 20 I&O: Intake and Output 09/06/16 09/07/16 19:00 07:00 Intake Total 817 ml 1700.4 ml Output Total 2350 ml 965 ml Balance -1533 ml 735.4 ml IV Total 817 ml 1640.4 ml Other 60 ml Output Urine Total 2350 ml 965 ml CXR: no change Labs: Laboratory Tests Test 09/06/16 18:05 09/07/16 04:15 09/07/16 09:34 White Blood Count 19.4 K/UL (4.8-10.8) H 19.5 K/UL (4.8-10.8) H Red Blood Count 2.52 M/UL (4.70-6.10) L 2.75 M/UL (4.70-6.10) L Hemoglobin 8.1 G/DL (14.2-18.0) L 8.4 G/DL (14.2-18.0) L Hematocrit 24.0 % (42.0-52.0) L 26.7 % (42.0-52.0) L Mean Corpuscular Volume 95 FL (80-99) 97 FL (80-99) Mean Corpuscular Hemoglobin 32.0 PG (27.0-31.0) H 30.4 PG (27.0-31.0) Mean Corpuscular Hemoglobin Concent 33.6 G/DL (32.0-36.0) 31.4 G/DL (32.0-36.0) L Red Cell Distribution Width 15.4 % (11.6-14.8) H 15.5 % (11.6-14.8) H Platelet Count 210 K/UL (150-450) 219 K/UL (150-450) Mean Platelet Volume 6.5 FL (6.5-10.1) 6.9 FL (6.5-10.1) Neutrophils (%) (Auto) 82.9 % (45.0-75.0) H % (45.0-75.0) Lymphocytes (%) (Auto) 5.9 % (20.0-45.0) L % (20.0-45.0) Monocytes (%) (Auto) 9.5 % (1.0-10.0) % (1.0-10.0) Eosinophils (%) (Auto) 0.0 % (0.0-3.0) % (0.0-3.0) Basophils (%) (Auto) 1.7 % (0.0-2.0) % (0.0-2.0) Sodium Level 155 mEQ/L (135-145) H 153 mEQ/L (135-145) H Potassium Level 4.5 mEQ/L (3.4-4.9) 4.3 mEQ/L (3.4-4.9) Chloride Level 119 mEQ/L (98-107) H 117 mEQ/L (98-107) H Carbon Dioxide Level 22 mEQ/L (20-30) 23 mEQ/L (20-30) Anion Gap 14 (5-15) 13 (5-15) Blood Urea Nitrogen 15 mg/dL (7-23) 13 mg/dL (7-23) Creatinine 0.9 mg/dL (0.7-1.2) 0.8 mg/dL (0.7-1.2) Estimat Glomerular Filtration Rate > 60 mL/min (>60) > 60 mL/min (>60) Glucose Level 144 mg/dL (74-106) H 108 mg/dL (74-106) H Calcium Level 9.1 mg/dL (8.6-10.2) 8.9 mg/dL (8.6-10.2) Total Bilirubin 0.4 mg/dL (0.0-1.2) 0.4 mg/dL (0.0-1.2) Aspartate Amino Transf (AST/SGOT) 85 U/L (5-40) H 74 U/L (5-40) H Alanine Aminotransferase (ALT/SGPT) 25 U/L (3-41) 24 U/L (3-41) Alkaline Phosphatase 157 U/L (40-129) H 175 U/L (40-129) H Total Protein 8.1 g/dL (6.6-8.7) 7.7 g/dL (6.6-8.7) Albumin 3.4 g/dL (3.5-5.2) L 3.2 g/dL (3.5-5.2) L Globulin 4.7 g/dL 4.5 g/dL Albumin/Globulin Ratio 0.7 (1.0-2.7) L 0.7 (1.0-2.7) L Differential Total Cells Counted 100 Neutrophils % (Manual) 76 % (45-75) H Lymphocytes % (Manual) 10 % (20-45) L Monocytes % (Manual) 10 % (1-10) Eosinophils % (Manual) 0 % (0-3) Basophils % (Manual) 0 % (0-2) Band Neutrophils 4 % (0-8) Platelet Estimate Adequate Platelet Morphology Normal Hypochromasia 1+ Anisocytosis 1+ Phosphorus Level 3.1 mg/dL (2.5-4.8) Magnesium Level 2.2 mg/dL (1.7-2.5) Arterial Blood pH 7.360 (7.350-7.450) Arterial Blood Partial Pressure CO2 45.0 mmHg (35.0-45.0) Arterial Blood Partial Pressure O2 66.0 mmHg (75.0-100.0) L Arterial Blood HCO3 24.5 mmol/L (22.0-26.0) Arterial Blood Oxygen Saturation 90.0 % (92.0-98.0) L Arterial Blood Base Excess -1.0 Raul Test ALLY MURRAY Sep 07, 2016 15:59
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
[2016-09-07] MEDS ORDERED: Tubing Blood Filter IV ONE (17:23)
[2016-09-07] MEDS ORDERED: NS 275ml ONE (17:23)
[2016-09-07] MEDS ORDERED: Tubing IV Secondary IV ONE (17:23)
[2016-09-07] MEDS ORDERED: D5NS 1000ml IV ONE (17:23)
--- NOTE | 2016-09-07 18:26 | Cardiology Progress Note ---
Assessment/Plan Assessment/Plan reviewed echo patient's tachycardia is most likely due to sepsis will monitor Subjective Subjective the patient is letharcig and confused he is not answering questions and not following commands Objective Last 24 Hour Vital Signs Date Time Temp Pulse Resp B/P Pulse Ox O2 Delivery O2 Flow Rate FiO2 09/07/16 18:00 100.3 110 22 128/73 100 Simple Mask 6.0 09/07/16 17:55 100.2 09/07/16 17:00 109 22 121/58 100 Simple Mask 6.0 09/07/16 16:00 99.6 101 25 102/59 98 Simple Mask 6.0 09/07/16 16:00 102 09/07/16 15:39 99.7 09/07/16 15:00 112 25 139/83 98 Simple Mask 6.0 09/07/16 14:00 99.4 106 18 131/64 100 Simple Mask 6.0 09/07/16 13:00 108 22 120/79 98 Simple Mask 6.0 09/07/16 12:00 112 09/07/16 12:00 99.1 110 22 145/76 100 Simple Mask 6.0 09/07/16 11:00 100.2 102 18 101/53 98 Simple Mask 6.0 09/07/16 10:00 108 22 126/79 98 Simple Mask 6.0 09/07/16 09:00 105 18 124/89 100 Simple Mask 6.0 09/07/16 08:00 97.6 98 24 122/66 100 Simple Mask 6.0 09/07/16 08:00 98 09/07/16 07:24 Nasal Cannula 3.0 32 09/07/16 07:24 100 Nasal Cannula 3.0 32 09/07/16 07:24 100 18 Nasal Cannula 3.0 32 09/07/16 07:00 99 26 106/68 100 Simple Mask 6.0 09/07/16 06:00 126 26 145/83 100 Simple Mask 6.0 09/07/16 05:00 100 26 103/65 100 Simple Mask 6.0 09/07/16 04:00 100 09/07/16 04:00 98.3 97 26 96/66 100 Simple Mask 6.0 09/07/16 03:00 111 26 157/87 100 Simple Mask 6.0 09/07/16 02:00 111 26 157/87 100 Simple Mask 6.0 09/07/16 01:00 97.8 128 24 153/60 100 Simple Mask 6.0 09/07/16 00:00 125 26 163/90 100 Simple Mask 6.0 09/07/16 00:00 123 09/06/16 23:00 99.7 132 24 167/104 100 Simple Mask 6.0 09/06/16 22:00 98.7 123 24 154/82 100 Simple Mask 6.0 09/06/16 21:00 99.0 123 24 165/97 100 Simple Mask 6.0 09/06/16 20:00 100.0 128 26 149/91 100 Simple Mask 6.0 09/06/16 20:00 127 09/06/16 19:00 139 28 165/82 100 Simple Mask 6.0 General Appearance: lethargic EENT: PERRL/EOMI Neck: other - there is post trach opening covered with gauze Rhythm: NSR Cardiovascular: normal rate, tachycardia Abdomen: soft Extremities: no swelling Intake and Output 09/06/16 09/07/16 19:00 07:00 Intake Total 817 ml 1700.4 ml Output Total 2350 ml 965 ml Balance -1533 ml 735.4 ml IV Total 817 ml 1640.4 ml Other 60 ml Output Urine Total 2350 ml 965 ml Laboratory Tests Test 09/07/16 04:15 09/07/16 09:34 White Blood Count 19.5 K/UL (4.8-10.8) H Red Blood Count 2.75 M/UL (4.70-6.10) L Hemoglobin 8.4 G/DL (14.2-18.0) L Hematocrit 26.7 % (42.0-52.0) L Mean Corpuscular Volume 97 FL (80-99) Mean Corpuscular Hemoglobin 30.4 PG (27.0-31.0) Mean Corpuscular Hemoglobin Concent 31.4 G/DL (32.0-36.0) L Red Cell Distribution Width 15.5 % (11.6-14.8) H Platelet Count 219 K/UL (150-450) Mean Platelet Volume 6.9 FL (6.5-10.1) Neutrophils (%) (Auto) % (45.0-75.0) Lymphocytes (%) (Auto) % (20.0-45.0) Monocytes (%) (Auto) % (1.0-10.0) Eosinophils (%) (Auto) % (0.0-3.0) Basophils (%) (Auto) % (0.0-2.0) Differential Total Cells Counted 100 Neutrophils % (Manual) 76 % (45-75) H Lymphocytes % (Manual) 10 % (20-45) L Monocytes % (Manual) 10 % (1-10) Eosinophils % (Manual) 0 % (0-3) Basophils % (Manual) 0 % (0-2) Band Neutrophils 4 % (0-8) Platelet Estimate Adequate Platelet Morphology Normal Hypochromasia 1+ Anisocytosis 1+ Sodium Level 153 mEQ/L (135-145) H Potassium Level 4.3 mEQ/L (3.4-4.9) Chloride Level 117 mEQ/L (98-107) H Carbon Dioxide Level 23 mEQ/L (20-30) Anion Gap 13 (5-15) Blood Urea Nitrogen 13 mg/dL (7-23) Creatinine 0.8 mg/dL (0.7-1.2) Estimat Glomerular Filtration Rate > 60 mL/min (>60) Glucose Level 108 mg/dL (74-106) H Calcium Level 8.9 mg/dL (8.6-10.2) Phosphorus Level 3.1 mg/dL (2.5-4.8) Magnesium Level 2.2 mg/dL (1.7-2.5) Total Bilirubin 0.4 mg/dL (0.0-1.2) Aspartate Amino Transf (AST/SGOT) 74 U/L (5-40) H Alanine Aminotransferase (ALT/SGPT) 24 U/L (3-41) Alkaline Phosphatase 175 U/L (40-129) H Total Protein 7.7 g/dL (6.6-8.7) Albumin 3.2 g/dL (3.5-5.2) L Globulin 4.5 g/dL Albumin/Globulin Ratio 0.7 (1.0-2.7) L Arterial Blood pH 7.360 (7.350-7.450) Arterial Blood Partial Pressure CO2 45.0 mmHg (35.0-45.0) Arterial Blood Partial Pressure O2 66.0 mmHg (75.0-100.0) L Arterial Blood HCO3 24.5 mmol/L (22.0-26.0) Arterial Blood Oxygen Saturation 90.0 % (92.0-98.0) L Arterial Blood Base Excess -1.0 Raul Test Microbiology Date/Time Source Procedure Growth Status 09/05/16 17:00 Sputum Gram Stain - Final Complete 09/05/16 17:00 Sputum Sputum Culture - Final NORMAL UPPER RESPIRATORY SRIDHAR AT 48 ... Complete 09/04/16 19:17 Nasal Not Otherwise Specified MRSA Culture - Final NO METHICILLIN RESISTANT STAPH AUREUS... Complete 09/05/16 17:00 Urine,Clean Catch Urine Culture - Final Complete 09/04/16 19:17 Rectum VRE Culture - Final Enterococcus Faecalis - Vre Complete DEBORAH FRANCISCO Sep 07, 2016 18:26
[2016-09-07] MEDS: Meropenem 1 GM in NS 110 ML IVPB SCH (20:10)
[2016-09-07] MEDS: Iron Sucrose 100 MG in NS 55 ML IVPB SCH (20:39)
[2016-09-07] MEDS: Vancomycin 1 GM in D5W 275 ML IVPB SCH (20:47)
[2016-09-08] VITALS (18 sets, daily range): BP systolic 109–157; BP diastolic 62–90
[2016-09-08] MEDS: Meropenem 1 GM in NS 110 ML IVPB SCH ×3 (03:31→20:00)
[2016-09-08 05:03] LABS: MEAN CORPUSCULAR HEMOGLOBIN 30.7 PG (27.0-31.0); MEAN CORPUSCULAR HGB CONC 32.1 G/DL (32.0-36.0); MEAN CORPUSCULAR VOLUME 96 FL (80-99); MEAN PLATELET VOLUME 6.6 FL (6.5-10.1); PLATELET COUNT 203 K/UL (150-450); RED BLOOD COUNT 2.47 M/UL (4.70-6.10); WHITE BLOOD COUNT 15.2 K/UL (4.8-10.8)
[2016-09-08 05:27] LABS: ALANINE AMINOTRANSFERASE 19 U/L (3-41); ALBUMIN/GLOBULIN RATIO 0.6 (1.0-2.7); ANION GAP 11 (5-15); ASPARTATE AMINO TRANSFERASE 36 U/L (5-40); CALCIUM 9.1 mg/dL (8.6-10.2); CARBON DIOXIDE 25 mEQ/L (20-30); CHLORIDE 114 mEQ/L (98-107); CREATININE 0.7 mg/dL (0.7-1.2); GLOMERULAR FILTRATION RATE > 60 mL/min (>60); HEMOLYSIS 1; POTASSIUM 3.8 mEQ/L (3.4-4.9); SODIUM 150 mEQ/L (135-145); TOTAL PROTEIN 7.1 g/dL (6.6-8.7)
[2016-09-08] MEDS: LORazepam Inj 2mg/ml 1ml IV PRN ×4 (08:26→20:46)
[2016-09-08] MEDS: Vancomycin 1 GM in D5W 275 ML IVPB SCH ×2 (08:26→21:30)
[2016-09-08] MEDS: Pantoprazole Inj IVP SCH (08:26)
[2016-09-08] MEDS: Heparin 5000 units/ml inj SUBQ SCH ×2 (08:28→21:35)
--- NOTE | 2016-09-08 08:40 | Infectious Diseases Prog Note ---
Assessment/Plan Assessment/Plan A; Sepsis Pneumonia VRE colonization DM Anemia History of polysubstance abuse P: Continue the patient on IV vancomycin, Levaquin and Merrem Subjective ROS Limited/Unobtainable: Yes Constitutional: Reports: fever, other - low grade Neurologic: Reports: confusion, other - on restraint Allergies: Coded Allergies: No Known Allergies (Unverified , 09/04/16) Objective Vital Signs Last 24 Hour Vital Signs Date Time Temp Pulse Resp B/P Pulse Ox O2 Delivery O2 Flow Rate FiO2 09/08/16 08:00 98.9 101 18 130/68 100 Simple Mask 6.0 09/08/16 08:00 101 09/08/16 07:43 93 17 Venturi Mask 14.0 55 09/08/16 07:42 Venturi Mask 14.0 55 09/08/16 07:41 100 Venturi Mask 14.0 55 09/08/16 07:00 98 18 109/68 100 Venturi Mask 65 09/08/16 06:38 99.3 09/08/16 06:00 106 18 111/68 100 Venturi Mask 65 09/08/16 05:00 108 22 132/82 100 Venturi Mask 65 09/08/16 04:00 99.2 108 19 124/75 100 Venturi Mask 65 09/08/16 04:00 103 09/08/16 03:00 102 17 114/77 100 Venturi Mask 65 09/08/16 02:00 98.3 95 19 110/85 100 Venturi Mask 65 09/08/16 01:00 99.0 95 19 123/63 100 Venturi Mask 65 09/08/16 00:00 99.2 114 19 157/78 100 Venturi Mask 65 09/08/16 00:00 106 09/07/16 23:00 106 20 115/78 100 Venturi Mask 65 09/07/16 22:00 118 20 136/72 100 Simple Mask 6.0 09/07/16 21:00 99.3 121 19 120/80 100 Simple Mask 6.0 09/07/16 20:00 99.3 101 19 123/78 100 Simple Mask 6.0 09/07/16 20:00 124 09/07/16 19:46 100 Simple Mask 8.0 50 09/07/16 19:46 Simple Mask 8.0 50 09/07/16 19:44 112 21 Simple Mask 8.0 09/07/16 19:00 100.4 109 20 121/64 100 Simple Mask 6.0 09/07/16 18:00 100.3 110 22 128/73 100 Simple Mask 6.0 09/07/16 17:00 109 22 121/58 100 Simple Mask 6.0 09/07/16 16:00 99.6 101 25 102/59 98 Simple Mask 6.0 09/07/16 16:00 102 09/07/16 15:39 99.7 09/07/16 15:00 112 25 139/83 98 Simple Mask 6.0 09/07/16 14:00 99.4 106 18 131/64 100 Simple Mask 6.0 09/07/16 13:00 108 22 120/79 98 Simple Mask 6.0 09/07/16 12:00 112 09/07/16 12:00 99.1 110 22 145/76 100 Simple Mask 6.0 09/07/16 11:00 100.2 102 18 101/53 98 Simple Mask 6.0 09/07/16 10:00 108 22 126/79 98 Simple Mask 6.0 09/07/16 09:00 105 18 124/89 100 Simple Mask 6.0 Height (Feet): 5 Height (Inches): 9.00 Weight (Pounds): 159 HEENT: other - tracheostomy site covered Respiratory/Chest: lungs clear, other - O2 by mask Cardiovascular: tachycardia Abdomen: soft, non tender, other - GT feeding Extremities: no edema Neurologic/Psychiatric: disoriented Microbiology Date/Time Source Procedure Growth Status 09/05/16 17:00 Sputum Gram Stain - Final Complete 09/05/16 17:00 Sputum Sputum Culture - Final NORMAL UPPER RESPIRATORY SRIDHAR AT 48 ... Complete 09/05/16 17:00 Urine,Clean Catch Urine Culture - Final Complete Laboratory Tests Test 09/07/16 09:34 09/07/16 18:00 09/07/16 19:55 09/08/16 04:30 Arterial Blood pH 7.360 (7.350-7.450) Arterial Blood Partial Pressure CO2 45.0 mmHg (35.0-45.0) Arterial Blood Partial Pressure O2 66.0 mmHg (75.0-100.0) L Arterial Blood HCO3 24.5 mmol/L (22.0-26.0) Arterial Blood Oxygen Saturation 90.0 % (92.0-98.0) L Arterial Blood Base Excess -1.0 Raul Test Legionella pneumophila Group 1 Ab Pending Legionella pneumophilia IgM Group 1 Pending Urine Legionella Antigen Pending Vancomycin Level Trough 3.3 ug/mL (5.0-12.0) L White Blood Count 15.2 K/UL (4.8-10.8) H Red Blood Count 2.47 M/UL (4.70-6.10) L Hemoglobin 7.6 G/DL (14.2-18.0) L Hematocrit 23.6 % (42.0-52.0) L Mean Corpuscular Volume 96 FL (80-99) Mean Corpuscular Hemoglobin 30.7 PG (27.0-31.0) Mean Corpuscular Hemoglobin Concent 32.1 G/DL (32.0-36.0) Red Cell Distribution Width 15.0 % (11.6-14.8) H Platelet Count 203 K/UL (150-450) Mean Platelet Volume 6.6 FL (6.5-10.1) Neutrophils (%) (Auto) % (45.0-75.0) Lymphocytes (%) (Auto) % (20.0-45.0) Monocytes (%) (Auto) % (1.0-10.0) Eosinophils (%) (Auto) % (0.0-3.0) Basophils (%) (Auto) % (0.0-2.0) Sodium Level 150 mEQ/L (135-145) H Potassium Level 3.8 mEQ/L (3.4-4.9) Chloride Level 114 mEQ/L (98-107) H Carbon Dioxide Level 25 mEQ/L (20-30) Anion Gap 11 (5-15) Blood Urea Nitrogen 10 mg/dL (7-23) Creatinine 0.7 mg/dL (0.7-1.2) Estimat Glomerular Filtration Rate > 60 mL/min (>60) Glucose Level 105 mg/dL (74-106) Calcium Level 9.1 mg/dL (8.6-10.2) Total Bilirubin 0.2 mg/dL (0.0-1.2) Aspartate Amino Transf (AST/SGOT) 36 U/L (5-40) Alanine Aminotransferase (ALT/SGPT) 19 U/L (3-41) Alkaline Phosphatase 133 U/L (40-129) H Pro-B-Type Natriuretic Peptide 877 pg/mL (0-125) H Total Protein 7.1 g/dL (6.6-8.7) Albumin 2.9 g/dL (3.5-5.2) L Globulin 4.2 g/dL Albumin/Globulin Ratio 0.6 (1.0-2.7) L Current Medications Medications (Trade) Dose Ordered Sig/Cesar Route PRN Reason Start Time Stop Time Status Last Admin Dose Admin Acetaminophen (Tylenol) 650 mg Q4H PRN RECTAL Prn Headache/Temp > 101 09/06/16 12:45 10/06/16 12:44 09/06/16 16:51 Acetaminophen 650 mg 650 mg Q4H PRN ORAL Mild Pain 09/06/16 15:45 10/06/16 15:44 09/08/16 05:39 Albuterol/ Ipratropium (DuoNeb 0.5-3(2.5)mg/3ml) 3 ml Q4H PRN HHN Shortness of Breath 09/04/16 19:30 09/09/16 19:29 Chlordiazepoxide 25 mg 25 mg Q6H PRN ORAL Delirium Tremens 09/05/16 07:30 09/12/16 07:29 09/06/16 05:41 Haloperidol Lactate/Dextrose (Haldol/D5W) 56 ml @ 112 mls/hr Q1H PRN IVPB Agitation 09/05/16 09:30 10/05/16 09:29 09/06/16 21:08 Heparin Sodium (Porcine) (Heparin 5000 units/ml) 5,000 units EVERY 12 HOURS SUBQ 09/04/16 21:00 10/04/16 20:59 09/08/16 08:28 Iron Sucrose/ Sodium Chloride (Venofer/Sodium Chloride) 60 ml @ 240 mls/hr BEDTIME IVPB 09/05/16 21:00 09/09/16 21:14 09/07/16 20:39 Levofloxacin 150 ml @ 100 mls/hr Q24H IVPB 09/07/16 18:30 09/14/16 18:29 09/07/16 19:03 Lorazepam 2 mg 2 mg Q1H PRN IV For Anxiety 09/05/16 10:54 09/12/16 10:53 09/08/16 08:26 Meropenem 1 gm/ Sodium Chloride 110 ml @ 220 mls/hr Q8HR@0400,1200,2000 IVPB 09/07/16 20:00 09/12/16 19:59 09/08/16 03:31 Morphine Sulfate (Morphine Sulfate) 6 mg Q4H PRN IVP Severe Pain (Pain Scale 7-10) 09/06/16 11:30 09/13/16 11:29 09/07/16 15:09 Ondansetron HCl (Zofran) 4 mg Q6H PRN IVP Nausea & Vomiting 09/04/16 19:30 10/04/16 19:29 Pantoprazole (Protonix) 40 mg DAILY IVP 09/05/16 09:00 10/05/16 08:59 09/08/16 08:26 Polyethylene Glycol (Miralax) 17 gm DAILYPRN PRN ORAL Constipation 09/04/16 19:30 10/04/16 19:29 Vancomycin HCl (Vanco rx to dose) 1 ea DAILY PRN MISC per rx protocol 09/04/16 20:45 10/04/16 20:44 Vancomycin HCl/ Dextrose (Vancomycin/D5W) 275 ml @ 183.3 mls/ hr Q12HR IVPB 09/07/16 21:00 09/09/16 20:59 09/08/16 08:26 TASHI STARR Sep 08, 2016 08:40
[2016-09-08] MEDS: Morphine Sulfate 10mg/ml Inj IVP PRN ×2 (10:45→16:43)
[2016-09-08] MEDS ORDERED: Tubing IV Secondary IV ONE (11:11)
[2016-09-08] MEDS ORDERED: NS 275ml ONE (11:11)
--- NOTE | 2016-09-08 11:23 | Nephrology Progress Note ---
Assessment/Plan Problem List: (1) Hypernatremia Assessment: better (2) Hypoglycemia (3) Anemia Assessment: worse Plan cont with water flushes follow labs check iron panel Subjective Subjective In NAD Objective Objective Last 24 Hour Vital Signs Date Time Temp Pulse Resp B/P Pulse Ox O2 Delivery O2 Flow Rate FiO2 09/08/16 11:00 99.1 102 22 118/69 100 Simple Mask 6.0 09/08/16 10:00 104 20 133/62 100 Simple Mask 6.0 09/08/16 09:00 102 20 119/69 100 Simple Mask 6.0 09/08/16 08:00 98.9 101 18 130/68 100 Simple Mask 6.0 09/08/16 08:00 101 09/08/16 07:43 93 17 Venturi Mask 14.0 55 09/08/16 07:42 Venturi Mask 14.0 55 09/08/16 07:41 100 Venturi Mask 14.0 55 09/08/16 07:00 98 18 109/68 100 Venturi Mask 65 09/08/16 06:38 99.3 09/08/16 06:00 106 18 111/68 100 Venturi Mask 65 09/08/16 05:00 108 22 132/82 100 Venturi Mask 65 09/08/16 04:00 99.2 108 19 124/75 100 Venturi Mask 65 09/08/16 04:00 103 09/08/16 03:00 102 17 114/77 100 Venturi Mask 65 09/08/16 02:00 98.3 95 19 110/85 100 Venturi Mask 65 09/08/16 01:00 99.0 95 19 123/63 100 Venturi Mask 65 09/08/16 00:00 99.2 114 19 157/78 100 Venturi Mask 65 09/08/16 00:00 106 09/07/16 23:00 106 20 115/78 100 Venturi Mask 65 09/07/16 22:00 118 20 136/72 100 Simple Mask 6.0 09/07/16 21:00 99.3 121 19 120/80 100 Simple Mask 6.0 09/07/16 20:00 99.3 101 19 123/78 100 Simple Mask 6.0 09/07/16 20:00 124 09/07/16 19:46 100 Simple Mask 8.0 50 09/07/16 19:46 Simple Mask 8.0 50 09/07/16 19:44 112 21 Simple Mask 8.0 09/07/16 19:00 100.4 109 20 121/64 100 Simple Mask 6.0 09/07/16 18:00 100.3 110 22 128/73 100 Simple Mask 6.0 09/07/16 17:00 109 22 121/58 100 Simple Mask 6.0 09/07/16 16:00 99.6 101 25 102/59 98 Simple Mask 6.0 09/07/16 16:00 102 09/07/16 15:39 99.7 09/07/16 15:00 112 25 139/83 98 Simple Mask 6.0 09/07/16 14:00 99.4 106 18 131/64 100 Simple Mask 6.0 09/07/16 13:00 108 22 120/79 98 Simple Mask 6.0 09/07/16 12:00 112 09/07/16 12:00 99.1 110 22 145/76 100 Simple Mask 6.0 Intake and Output 09/07/16 09/08/16 19:00 07:00 Intake Total 1240 ml 1865 ml Output Total 860 ml 835 ml Balance 380 ml 1030 ml Free Water 750 ml 900 ml IV Total 340 ml 705 ml Tube Feeding 100 ml 260 ml Other 50 ml Output Urine Total 860 ml 835 ml Laboratory Tests 09/07/16 18:00: Legionella pneumophila Group 1 Ab [Pending], Legionella pneumophilia IgM Group 1 [Pending], Urine Legionella Antigen [Pending] 09/07/16 19:55: Vancomycin Level Trough 3.3L 09/08/16 04:30: White Blood Count 15.2H, Red Blood Count 2.47L, Hemoglobin 7.6L, Hematocrit 23.6L, Mean Corpuscular Volume 96, Mean Corpuscular Hemoglobin 30.7, Mean Corpuscular Hemoglobin Concent 32.1, Red Cell Distribution Width 15.0H, Platelet Count 203, Mean Platelet Volume 6.6, Neutrophils (%) (Auto) , Lymphocytes (%) (Auto) , Monocytes (%) (Auto) , Eosinophils (%) (Auto) , Basophils (%) (Auto) , Sodium Level 150H, Potassium Level 3.8, Chloride Level 114H, Carbon Dioxide Level 25, Anion Gap 11, Blood Urea Nitrogen 10, Creatinine 0.7, Estimat Glomerular Filtration Rate > 60, Glucose Level 105, Calcium Level 9.1, Total Bilirubin 0.2, Aspartate Amino Transf (AST/SGOT) 36, Alanine Aminotransferase (ALT/SGPT) 19, Alkaline Phosphatase 133H, Pro-B-Type Natriuretic Peptide 877H, Total Protein 7.1, Albumin 2.9L, Globulin 4.2, Albumin /Globulin Ratio 0.6L Height (Feet): 5 Height (Inches): 9.00 Weight (Pounds): 159 Cardiovascular: normal rate Respiratory/Chest: rhonchi - bilaterally Extremities: moderate edema KEVIN STARR Sep 08, 2016 11:23
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
[2016-09-08] MEDS ORDERED: Haloperidol Lactate 5 MG in D5W 55 ML IVPB PRN (18:30)
[2016-09-08] MEDS ORDERED: Morphine Sulfate 10mg/ml Inj IVP PRN (19:30)
[2016-09-08] MEDS ORDERED: Miralax 17gm pkt ORAL PRN (19:30)
[2016-09-08] MEDS ORDERED: chlordiazePOXIDE 25mg Cap ORAL PRN (19:30)
[2016-09-08] MEDS ORDERED: DuoNeb 0.5-3(2.5)mg/3ml neb HHN PRN (19:30)
--- NOTE | 2016-09-08 20:26 | Cardiology Progress Note ---
Assessment/Plan Assessment/Plan continue treatment of infection also severe anemia Subjective Subjective remains lethargic is not communicating Objective Last 24 Hour Vital Signs Date Time Temp Pulse Resp B/P Pulse Ox O2 Delivery O2 Flow Rate FiO2 09/08/16 17:13 99.8 09/08/16 16:00 98 09/08/16 16:00 100.2 108 24 129/72 100 Simple Mask 6.0 09/08/16 15:00 119 20 140/90 100 Simple Mask 6.0 09/08/16 14:00 99.1 104 18 130/80 100 Simple Mask 6.0 09/08/16 13:00 102 20 120/62 100 Simple Mask 6.0 09/08/16 12:00 100 09/08/16 12:00 98.7 100 18 128/69 98 Simple Mask 6.0 09/08/16 11:00 99.1 102 22 118/69 100 Simple Mask 6.0 09/08/16 10:00 104 20 133/62 100 Simple Mask 6.0 09/08/16 09:00 102 20 119/69 100 Simple Mask 6.0 09/08/16 08:00 98.9 101 18 130/68 100 Simple Mask 6.0 09/08/16 08:00 101 09/08/16 07:43 93 17 Venturi Mask 14.0 55 09/08/16 07:42 Venturi Mask 14.0 55 09/08/16 07:41 100 Venturi Mask 14.0 55 09/08/16 07:00 98 18 109/68 100 Venturi Mask 65 09/08/16 06:38 99.3 09/08/16 06:00 106 18 111/68 100 Venturi Mask 65 09/08/16 05:00 108 22 132/82 100 Venturi Mask 65 09/08/16 04:00 99.2 108 19 124/75 100 Venturi Mask 65 09/08/16 04:00 103 09/08/16 03:00 102 17 114/77 100 Venturi Mask 65 09/08/16 02:00 98.3 95 19 110/85 100 Venturi Mask 65 09/08/16 01:00 99.0 95 19 123/63 100 Venturi Mask 65 09/08/16 00:00 99.2 114 19 157/78 100 Venturi Mask 65 09/08/16 00:00 106 09/07/16 23:00 106 20 115/78 100 Venturi Mask 65 09/07/16 22:00 118 20 136/72 100 Simple Mask 6.0 09/07/16 21:00 99.3 121 19 120/80 100 Simple Mask 6.0 General Appearance: lethargic EENT: PERRL/EOMI, other - pale Neck: other - trach, covered Rhythm: NSR, ST Cardiovascular: regular rhythm Respiratory/Chest: rhonchi - bilaterally Abdomen: soft Intake and Output 09/07/16 09/08/16 19:00 07:00 Intake Total 1240 ml 1865 ml Output Total 860 ml 835 ml Balance 380 ml 1030 ml Free Water 750 ml 900 ml IV Total 340 ml 705 ml Tube Feeding 100 ml 260 ml Other 50 ml Output Urine Total 860 ml 835 ml Laboratory Tests Test 09/08/16 04:30 White Blood Count 15.2 K/UL (4.8-10.8) H Red Blood Count 2.47 M/UL (4.70-6.10) L Hemoglobin 7.6 G/DL (14.2-18.0) L Hematocrit 23.6 % (42.0-52.0) L Mean Corpuscular Volume 96 FL (80-99) Mean Corpuscular Hemoglobin 30.7 PG (27.0-31.0) Mean Corpuscular Hemoglobin Concent 32.1 G/DL (32.0-36.0) Red Cell Distribution Width 15.0 % (11.6-14.8) H Platelet Count 203 K/UL (150-450) Mean Platelet Volume 6.6 FL (6.5-10.1) Neutrophils (%) (Auto) % (45.0-75.0) Lymphocytes (%) (Auto) % (20.0-45.0) Monocytes (%) (Auto) % (1.0-10.0) Eosinophils (%) (Auto) % (0.0-3.0) Basophils (%) (Auto) % (0.0-2.0) Sodium Level 150 mEQ/L (135-145) H Potassium Level 3.8 mEQ/L (3.4-4.9) Chloride Level 114 mEQ/L (98-107) H Carbon Dioxide Level 25 mEQ/L (20-30) Anion Gap 11 (5-15) Blood Urea Nitrogen 10 mg/dL (7-23) Creatinine 0.7 mg/dL (0.7-1.2) Estimat Glomerular Filtration Rate > 60 mL/min (>60) Glucose Level 105 mg/dL (74-106) Calcium Level 9.1 mg/dL (8.6-10.2) Total Bilirubin 0.2 mg/dL (0.0-1.2) Aspartate Amino Transf (AST/SGOT) 36 U/L (5-40) Alanine Aminotransferase (ALT/SGPT) 19 U/L (3-41) Alkaline Phosphatase 133 U/L (40-129) H Pro-B-Type Natriuretic Peptide 877 pg/mL (0-125) H Total Protein 7.1 g/dL (6.6-8.7) Albumin 2.9 g/dL (3.5-5.2) L Globulin 4.2 g/dL Albumin/Globulin Ratio 0.6 (1.0-2.7) L DEBORAH FRANCISCO Sep 08, 2016 20:26
[2016-09-08] MEDS ORDERED: Acetaminophen 650 MG SUPP RECTAL PRN (20:45)
[2016-09-08] MEDS: Iron Sucrose 100 MG in NS 55 ML IVPB SCH (21:00)
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
[2016-09-09 00:12] VITALS: BP 118/80
[2016-09-09 04:26] VITALS: BP 123/73
[2016-09-09] MEDS: Meropenem 1 GM in NS 110 ML IVPB SCH ×3 (04:35→20:07)
[2016-09-09] MEDS: LORazepam Inj 2mg/ml 1ml IV PRN (04:35)
[2016-09-09 08:02] VITALS: BP 144/83
[2016-09-09 08:25] LABS: BASOPHILS % (AUTO) 1.1 % (0.0-2.0); EOSINOPHILS % (AUTO) 2.3 % (0.0-3.0); LYMPHOCYTES % (AUTO) 4.8 % (20.0-45.0); MEAN CORPUSCULAR HEMOGLOBIN 30.2 PG (27.0-31.0); MEAN CORPUSCULAR HGB CONC 31.9 G/DL (32.0-36.0); MEAN CORPUSCULAR VOLUME 95 FL (80-99); MEAN PLATELET VOLUME 6.8 FL (6.5-10.1); MONOCYTES % (AUTO) 9.3 % (1.0-10.0); NEUTROPHILS % (AUTO) 82.5 % (45.0-75.0); PLATELET COUNT 236 K/UL (150-450); RED BLOOD COUNT 3.24 M/UL (4.70-6.10); RED CELL DISTRIBUTION WIDTH 14.8 % (11.6-14.8); WHITE BLOOD COUNT 11.4 K/UL (4.8-10.8)
[2016-09-09 08:38] LABS: ALANINE AMINOTRANSFERASE 16 U/L (3-41); ALBUMIN/GLOBULIN RATIO 0.6 (1.0-2.7); ANION GAP 9 (5-15); ASPARTATE AMINO TRANSFERASE 20 U/L (5-40); CALCIUM 9.4 mg/dL (8.6-10.2); CARBON DIOXIDE 28 mEQ/L (20-30); CHLORIDE 107 mEQ/L (98-107); CREATININE 0.7 mg/dL (0.7-1.2); GLOMERULAR FILTRATION RATE > 60 mL/min (>60); HEMOLYSIS 4; MAGNESIUM 1.8 mg/dL (1.7-2.5); PHOSPHORUS 3.2 mg/dL (2.5-4.8); POTASSIUM 3.8 mEQ/L (3.4-4.9); SODIUM 144 mEQ/L (135-145); TOTAL PROTEIN 7.1 g/dL (6.6-8.7)
[2016-09-09 08:47] LABS: HEMOLYSIS 20; IRON 25 ug/dL (59-158); TOTAL IRON BINDING CAPACITY 141 ug/dL (250-400)
[2016-09-09] MEDS: Pantoprazole Inj IVP SCH (09:11)
[2016-09-09] MEDS: Vancomycin 1 GM in D5W 275 ML IVPB SCH (09:12)
[2016-09-09] MEDS: Heparin 5000 units/ml inj SUBQ SCH ×2 (09:13→21:18)
--- NOTE | 2016-09-09 09:13 | Diagnostic Imaging Report ---
Indication: Dyspnea Comparison: 09/05/16 A single view chest radiograph was obtained. Findings: Patchy ill-defined infiltrates noted bilaterally unchanged. Heart size is stable. Impression: No significant exchange mechanic the last 24
--- NOTE | 2016-09-09 09:15 | Diagnostic Imaging Report ---
Indication: DYSPNEA Technique: XRAY CHEST 1 V. Comparison: 09/07/2016 Findings: The cardiomediastinal silhouette is unchanged. Increasing infiltrate is noted in the right mid and lower lung. There is also increasing infiltrate in the left lower lung. The density is noted in the left upper lobe surrounded by lucency. Pleural thickening is also noted in the left upper lobe. Impression: Increasing bilateral pulmonary infiltrates. This may represent pulmonary edema or pneumonia. Density in the left upper lobe with surrounding lucency. The possibility of a fungus ball within a cavity or other cavitary lesion with contained debris should be strongly considered. Further evaluation with CT of the chest is suggested.
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
[2016-09-09 11:33] VITALS: BP 103/75
--- NOTE | 2016-09-09 15:17 | Diagnostic Imaging Report ---
Clinical Indication: COUGH Technique: Spiral acquisitions obtained through the chest. No IV contrast utilized, reason not stated. Multiplanar reconstructions generated. Total dose length product 79 mGycm. CTDIvol(s) 17 mGy. Dose reduction achieved using automated exposure control Comparison: Reference made to prior chest radiographs Findings:In the left upper lobe, confirming findings suspected on previous chest radiographs, there is a 4.3 cm diameter thickwalled cavity, containing a 3.4 cm round opacity the inferior borders of the cavity demonstrate scarring and some bronchiectasis. In the right upper lobe, there is a smaller 18 mm diameter thickwalled cavity, with a central 9 mm nodule. Bullous changes are seen in both upper lobes. There is extensive bronchiectasis is seen in the right upper lobe. Large areas of honeycombing are seen in the posterior right upper lobe in the right middle lobe, and throughout much of the right lower lobe. Confluent opacities with air bronchograms are also seen in much of the right lower lobe. Honeycombing is also seen in the posterior left upper lobe. Reticular opacities in the left lower lobe may also represent areas of honeycombing, although this is less definite. There is considerable posterior dependent atelectasis and small bilateral pleural effusions. There is also thickening or fluid within the bilateral major fissures. Small bulla are seen in the right lung apex The heart is borderline enlarged. No pericardial effusion demonstrated. No mediastinal or hilar mass or adenopathy. Calcified nodes are seen in the subcarinal region. Right paratracheal nodes are prominent but not frankly enlarged. No thoracic aortic aneurysm. The main pulmonary artery is dilated, measures 4 cm in diameter. The thyroid is diffusely heterogeneous. No axillary or chest wall mass or adenopathy demonstrated, although there are prominent axillary nodes bilaterally. Multiple left rib fracture deformities are demonstrated, some ununited or incompletely united. There is fairly extensive degenerative thoracic spondylosis. The included upper, viscera are unremarkable except for the presence of a gastrostomy tube. Impression: 4.3 cm thick walled cavity in the left upper lobe with central large nodule, consistent with cavitary lesion, cyst or bulla containing a fungus ball Similar smaller 18 mm cavity with central nodule in the right upper lobe, likewise also probably a cavity or cyst with a fungus ball. Extensive chronic changes, with extensive bilateral honeycombing indicative of chronic interstitial fibrosis. Other bilateral confluent opacities, greater in the right lung, may represent areas of consolidation versus areas of confluent fibrosis. Small bilateral pleural effusions Calcifications in the left upper lobe fibrotic areas as well as subcarinal lymph nodes indicate old granulomatous disease Bullous changes in the right lung apex Borderline cardiomegaly Dilated pulmonary artery, consistent with pulmonary arterial hypertension Multiple old healed left rib fracture deformities The CT scanner at [facility] is accredited by the [employer] and the scans are performed using protocols designed to limit radiation exposure to as low as reasonably achievable to attain images of sufficient resolution adequate for diagnostic evaluation.
[2016-09-09 15:27] VITALS: BP 120/75
[2016-09-09] MEDS ORDERED: Tubing Blood Filter IV ONE (16:23)
[2016-09-09] MEDS ORDERED: Tubing IV Secondary IV ONE (16:27)
[2016-09-09] MEDS ORDERED: D5W 275ml ONE (16:27)
[2016-09-09] MEDS ORDERED: Sterile Water Irrig 1000ml IRRIG ONE (16:27)
--- NOTE | 2016-09-09 16:39 | Nephrology Progress Note ---
Assessment/Plan Problem List: (1) Hypernatremia Assessment: better (2) Hypoglycemia (3) Anemia Assessment: worse Plan cont with water flushes follow labs IV Iron Subjective Subjective In NAD Objective Objective Last 24 Hour Vital Signs Date Time Temp Pulse Resp B/P Pulse Ox O2 Delivery O2 Flow Rate FiO2 09/09/16 15:27 97.5 95 20 120/75 100 Simple Mask 6.0 09/09/16 11:33 97.5 94 20 103/75 100 Simple Mask 6.0 09/09/16 10:05 Simple Mask 6.0 09/09/16 10:04 102 17 Simple Mask 6.0 09/09/16 10:04 97 Simple Mask 6.0 09/09/16 08:02 97.2 99 20 144/83 93 Simple Mask 6.0 09/09/16 04:26 98.0 101 20 123/73 98 Simple Mask 09/09/16 04:00 79 09/09/16 00:12 97.3 102 20 118/80 100 Simple Mask 09/09/16 00:00 82 09/08/16 20:10 97.0 100 20 112/71 96 Simple Mask 09/08/16 20:10 79 09/08/16 17:13 99.8 Intake and Output 09/08/16 09/09/16 19:00 07:00 Intake Total 1615 ml 1965.0 ml Output Total 930 ml 500 ml Balance 685 ml 1465.0 ml Free Water 900 ml 900 ml IV Total 385 ml 735.0 ml Tube Feeding 330 ml 330 ml Output Urine Total 930 ml 500 ml Laboratory Tests 09/09/16 08:00: White Blood Count 11.4H, Red Blood Count 3.24L, Hemoglobin 9.8L, Hematocrit 30.7 #L, Mean Corpuscular Volume 95, Mean Corpuscular Hemoglobin 30.2, Mean Corpuscular Hemoglobin Concent 31.9L, Red Cell Distribution Width 14.8, Platelet Count 236, Mean Platelet Volume 6.8, Neutrophils (%) (Auto) 82.5H, Lymphocytes (%) (Auto) 4.8L, Monocytes (%) (Auto) 9.3, Eosinophils (%) (Auto) 2.3, Basophils (%) (Auto) 1.1, Sodium Level 144, Potassium Level 3.8, Chloride Level 107, Carbon Dioxide Level 28, Anion Gap 9, Blood Urea Nitrogen 9, Creatinine 0.7, Estimat Glomerular Filtration Rate > 60, Glucose Level 110H, Calcium Level 9.4, Phosphorus Level 3.2, Magnesium Level 1.8, Iron Level 25L, Total Iron Binding Capacity 141L, Percent Iron Saturation 18, Unsaturated Iron Binding 116, Total Bilirubin 0.3, Aspartate Amino Transf (AST/SGOT) 20, Alanine Aminotransferase (ALT/SGPT) 16, Alkaline Phosphatase 127, Total Protein 7.1, Albumin 2.8L, Globulin 4.3, Albumin/Globulin Ratio 0.6L, Vancomycin Level Trough 12.5H Height (Feet): 5 Height (Inches): 9.00 Weight (Pounds): 162 Cardiovascular: normal rate Respiratory/Chest: lungs clear Extremities: trace edema KEVIN STARR Sep 09, 2016 16:39
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
[2016-09-09 20:00] VITALS: BP_SYST 120; BP_SYST 132; BP_DIAS 62; BP_DIAS 75
[2016-09-09 20:08] LABS: L.PNEUMOPHILIA SERO-1 <0.91 OD ratio (0.00-0.90)
[2016-09-09] MEDS: Iron Sucrose 100 MG in NS 55 ML IVPB SCH (21:16)
[2016-09-09] MEDS: Vancomycin 1250mg/D5W 250ml 250 ML IVPB SCH (21:17)
[2016-09-10] VITALS: BP 119/66
[2016-09-10 04:00] VITALS: BP 108/65
[2016-09-10] MEDS: Meropenem 1 GM in NS 110 ML IVPB SCH ×3 (04:23→21:01)
[2016-09-10 08:00] VITALS: BP 107/57
[2016-09-10] MEDS: Pantoprazole Inj IVP SCH (09:58)
[2016-09-10] MEDS: Vancomycin 1250mg/D5W 250ml 250 ML IVPB SCH ×2 (09:59→21:31)
[2016-09-10] MEDS: Heparin 5000 units/ml inj SUBQ SCH ×2 (10:00→21:23)
--- NOTE | 2016-09-10 10:13 | Diagnostic Imaging Report ---
Indication: ABD PAIN abdominal pain Technique: IV administration 6 mCi 99M technetium Choletec. Images obtained over the liver for one hour Comparison: None Findings: There is prompt tracer uptake within the liver. Extra bile ducts are visualized at 13 minutes. Gallbladder is visualized at 16 minutes. Tracer is seen within the duodenum at 31 minutes. Impression: Negative. No evidence of cystic duct or common bile duct obstruction
[2016-09-10] MEDS ORDERED: Tubing IV Secondary IV ONE (10:16)
--- NOTE | 2016-09-10 10:34 | Infectious Diseases Prog Note ---
Assessment/Plan Assessment/Plan A; Sepsis Pneumonia VRE colonization DM Anemia History of polysubstance abuse Fungus ball Pulmonary HPN Pulmonary fibrosis P: Continue the patient on IV vancomycin, Levaquin and Merrem will narrow antibiotic soon Subjective ROS Limited/Unobtainable: Yes Neurologic: Reports: confusion, other - on restraint Allergies: Coded Allergies: No Known Allergies (Unverified , 09/04/16) Objective Vital Signs Last 24 Hour Vital Signs Date Time Temp Pulse Resp B/P Pulse Ox O2 Delivery O2 Flow Rate FiO2 09/10/16 08:00 97.9 81 18 107/57 100 Room Air 09/10/16 04:00 97.2 85 23 108/65 100 Venturi Mask 6.0 09/10/16 04:00 85 09/10/16 00:00 97.9 90 24 119/66 100 Mechanical Ventilator 6.0 09/10/16 00:00 91 09/09/16 22:00 90 09/09/16 20:00 98.2 89 23 132/62 100 Simple Mask 6.0 09/09/16 20:00 97.5 95 20 120/75 100 Simple Mask 6.0 55 09/09/16 16:00 100 09/09/16 15:27 97.5 95 20 120/75 100 Simple Mask 6.0 09/09/16 12:00 95 09/09/16 11:33 97.5 94 20 103/75 100 Simple Mask 6.0 Height (Feet): 5 Height (Inches): 9.00 Weight (Pounds): 165 HEENT: mucous membranes moist Respiratory/Chest: rhonchi - bilaterally, other - O2 by mask Cardiovascular: normal rate Abdomen: soft, non tender, other - GT feeding Extremities: no edema Neurologic/Psychiatric: other - opens eyes Laboratory Tests Test 09/10/16 07:25 HIV (1&2) Antibody Rapid Negative (NEGATIVE) Current Medications Medications (Trade) Dose Ordered Sig/Cesar Route PRN Reason Start Time Stop Time Status Last Admin Dose Admin Acetaminophen (Tylenol) 650 mg Q4H PRN ORAL Mild Pain 09/08/16 19:45 10/08/16 19:44 Acetaminophen (Tylenol) 650 mg Q4H PRN RECTAL Prn Headache/Temp > 101 09/08/16 20:45 10/08/16 20:44 Albuterol/ Ipratropium (DuoNeb 0.5-3(2.5)mg/3ml) 3 ml Q4H PRN HHN Shortness of Breath 09/08/16 19:30 09/13/16 19:29 Chlordiazepoxide (Librium) 25 mg Q6H PRN ORAL Delirium Tremens 09/08/16 19:30 09/15/16 19:29 Haloperidol Lactate 5 mg/ Dextrose 56 ml @ 112 mls/hr Q1H PRN IVPB Agitation 09/08/16 18:30 10/08/16 18:29 Heparin Sodium (Porcine) (Heparin 5000 units/ml) 5,000 units EVERY 12 HOURS SUBQ 09/08/16 21:00 10/08/16 20:59 09/10/16 10:00 Levofloxacin 150 ml @ 100 mls/hr Q24H IVPB 09/08/16 18:30 09/15/16 18:29 09/09/16 17:45 Lorazepam (Ativan 2mg/ml 1ml) 2 mg Q1H PRN IV For Anxiety 09/08/16 18:00 09/15/16 17:59 09/09/16 04:35 Meropenem/Sodium Chloride (Merrem/Sodium Chloride) 110 ml @ 220 mls/hr Q8HR@0400,1200,2000 IVPB 09/08/16 20:00 09/13/16 19:59 09/10/16 04:23 Morphine Sulfate (Morphine Sulfate) 6 mg Q4H PRN IVP Severe Pain (Pain Scale 7-10) 09/08/16 19:30 09/15/16 19:29 Ondansetron HCl (Zofran) 4 mg Q6H PRN IVP Nausea & Vomiting 09/08/16 19:30 10/08/16 19:29 Pantoprazole (Protonix) 40 mg DAILY IVP 09/09/16 09:00 10/09/16 08:59 09/10/16 09:58 Polyethylene Glycol (Miralax) 17 gm DAILYPRN PRN ORAL Constipation 09/08/16 19:30 10/08/16 19:29 Vancomycin HCl 1 ea 1 ea DAILY PRN MISC per rx protocol 09/09/16 09:00 10/09/16 08:59 Vancomycin HCl/ Dextrose (Vancomycin 1250mg/D5W 250ml) 250 ml @ 166.636 mls/hr Q12HR IVPB 09/09/16 21:00 09/14/16 20:59 09/10/16 09:59 TASHI STARR Sep 10, 2016 10:34
[2016-09-10 12:00] VITALS: BP 115/66
--- NOTE | 2016-09-10 12:28 | Diagnostic Imaging Report ---
APPROVED REPORT CPT Code: 09235 Present Symptoms Lower Extremity Pain: Bilateral BILATERAL: Imaging reveals a patent deep venous system bilaterally. There is no evidence of thrombus within the femoral, popliteal or tibial segments. The greater saphenous veins are also within normal limits. Doppler indicates normal spontaneous flow within these segments.
[2016-09-10 16:00] VITALS: BP 120/70
--- NOTE | 2016-09-10 16:29 | Nephrology Progress Note ---
Assessment/Plan Problem List: (1) Hypernatremia Assessment: better (2) Hypoglycemia (3) Anemia Assessment: better Plan cont with water flushes follow labs IV Iron Subjective Subjective In NAD Objective Objective Last 24 Hour Vital Signs Date Time Temp Pulse Resp B/P Pulse Ox O2 Delivery O2 Flow Rate FiO2 09/10/16 12:16 86 09/10/16 12:00 98.0 80 18 115/66 100 Simple Mask 9.0 09/10/16 08:00 97.9 81 18 107/57 100 Room Air 09/10/16 07:38 82 09/10/16 07:16 97 Simple Mask 6.0 09/10/16 07:13 Simple Mask 6.0 09/10/16 07:13 81 16 Simple Mask 6.0 09/10/16 04:00 97.2 85 23 108/65 100 Venturi Mask 6.0 09/10/16 04:00 85 09/10/16 00:00 97.9 90 24 119/66 100 Mechanical Ventilator 6.0 09/10/16 00:00 91 09/09/16 22:00 90 09/09/16 20:00 98.2 89 23 132/62 100 Simple Mask 6.0 09/09/16 20:00 97.5 95 20 120/75 100 Simple Mask 6.0 55 Intake and Output 09/09/16 09/10/16 19:00 07:00 Intake Total 440 ml 1620.000 ml Output Total 800 ml Balance 440 ml 820.000 ml Free Water 900 ml IV Total 260 ml 360.000 ml Tube Feeding 180 ml 360 ml Output Urine Total 800 ml # Voids 3 1 # Bowel Movements 1 Laboratory Tests 09/10/16 07:25: HIV (1&2) Antibody Rapid Negative Height (Feet): 5 Height (Inches): 9.00 Weight (Pounds): 165 Cardiovascular: normal rate Respiratory/Chest: rhonchi - bilaterally KEVIN STARR Sep 10, 2016 16:29
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
[2016-09-10 20:18] VITALS: BP 114/71
[2016-09-11 00:09] VITALS: BP 124/71
[2016-09-11] MEDS ORDERED: Haloperidol Lactate 5 MG in D5W 55 ML IVPB PRN ×5 (02:30→18:30)
[2016-09-11] MEDS ORDERED: LORazepam Inj 2mg/ml 1ml IV PRN ×3 (03:00→18:00)
[2016-09-11] MEDS: Meropenem 1 GM in NS 110 ML IVPB SCH ×2 (03:21→12:09)
[2016-09-11] MEDS ORDERED: DuoNeb 0.5-3(2.5)mg/3ml neb HHN PRN ×3 (03:30→19:30)
[2016-09-11] MEDS ORDERED: Morphine Sulfate 10mg/ml Inj IVP PRN ×2 (03:30→19:30)
[2016-09-11] MEDS ORDERED: Meropenem 1 GM in NS 110 ML IVPB SCH ×2 (04:00→20:00)
[2016-09-11 04:04] VITALS: BP 118/68
[2016-09-11] MEDS ORDERED: Acetaminophen 650 MG SUPP RECTAL PRN ×3 (04:45→20:45)
[2016-09-11] MEDS ORDERED: chlordiazePOXIDE 25mg Cap ORAL PRN ×3 (07:30→19:30)
[2016-09-11 07:54] LABS: EOSINOPHILS % (AUTO) 8.5 % (0.0-3.0); LYMPHOCYTES % (AUTO) 12.6 % (20.0-45.0); MEAN CORPUSCULAR HEMOGLOBIN 28.9 PG (27.0-31.0); MEAN CORPUSCULAR HGB CONC 30.9 G/DL (32.0-36.0); MEAN CORPUSCULAR VOLUME 93 FL (80-99); MEAN PLATELET VOLUME 6.3 FL (6.5-10.1); MONOCYTES % (AUTO) 11.4 % (1.0-10.0); NEUTROPHILS % (AUTO) 66.5 % (45.0-75.0); PLATELET COUNT 239 K/UL (150-450); RED BLOOD COUNT 2.86 M/UL (4.70-6.10); WHITE BLOOD COUNT 8.6 K/UL (4.8-10.8)
[2016-09-11 07:55] VITALS: BP 119/66
[2016-09-11 08:10] LABS: ALANINE AMINOTRANSFERASE 12 U/L (3-41); ALBUMIN/GLOBULIN RATIO 0.5 (1.0-2.7); ANION GAP 7 (5-15); ASPARTATE AMINO TRANSFERASE 13 U/L (5-40); CALCIUM 9.3 mg/dL (8.6-10.2); CARBON DIOXIDE 33 mEQ/L (20-30); CHLORIDE 102 mEQ/L (98-107); CREATININE 0.6 mg/dL (0.7-1.2); GLOMERULAR FILTRATION RATE > 60 mL/min (>60); HEMOLYSIS 0; MAGNESIUM 1.9 mg/dL (1.7-2.5); POTASSIUM 3.5 mEQ/L (3.4-4.9); SODIUM 142 mEQ/L (135-145); TOTAL PROTEIN 6.7 g/dL (6.6-8.7)
[2016-09-11] MEDS: Heparin 5000 units/ml inj SUBQ SCH ×2 (08:49→20:43)
[2016-09-11] MEDS ORDERED: Vancomycin 1250mg/D5W 250ml 250 ML IVPB SCH ×3 (09:00→21:00)
[2016-09-11] MEDS ORDERED: Heparin 5000 units/ml inj SUBQ SCH ×2 (09:00→21:00)
[2016-09-11 11:46] VITALS: BP 122/65
--- NOTE | 2016-09-11 12:00 | Nephrology Progress Note ---
Assessment/Plan Problem List: (1) Hypernatremia Assessment: ok (2) Hypoglycemia Assessment: ok (3) Anemia Assessment: slightly worse Plan cont with abxs follow labs Subjective Subjective feels ok Objective Objective Last 24 Hour Vital Signs Date Time Temp Pulse Resp B/P Pulse Ox O2 Delivery O2 Flow Rate FiO2 09/11/16 11:46 98.0 82 20 122/65 98 Simple Mask 5.0 09/11/16 07:56 98 Simple Mask 6.0 09/11/16 07:56 Simple Mask 6.0 09/11/16 07:55 98.2 79 20 119/66 98 Simple Mask 5.0 09/11/16 07:55 79 16 Simple Mask 6.0 09/11/16 04:04 97.7 74 20 118/68 100 Non-Rebreather 09/11/16 00:09 98.1 78 19 124/71 100 Simple Mask 9.0 09/10/16 20:18 97.7 78 18 114/71 100 Room Air 09/10/16 20:00 96 09/10/16 19:02 Simple Mask 6.0 09/10/16 19:00 86 16 Simple Mask 6.0 09/10/16 19:00 97 Simple Mask 6.0 09/10/16 16:00 80 09/10/16 16:00 98.0 77 18 120/70 Room Air 09/10/16 12:16 86 09/10/16 12:00 98.0 80 18 115/66 100 Simple Mask 9.0 Intake and Output 09/10/16 09/11/16 19:00 07:00 Intake Total 360.000 ml 2150.000 ml Balance 360.000 ml 2150.000 ml Free Water 1200 ml IV Total 360.000 ml 620.000 ml Tube Feeding 330 ml # Voids 6 # Bowel Movements 1 Laboratory Tests 09/11/16 07:30: White Blood Count 8.6, Red Blood Count 2.86L, Hemoglobin 8.3L, Hematocrit 26.7L , Mean Corpuscular Volume 93, Mean Corpuscular Hemoglobin 28.9, Mean Corpuscular Hemoglobin Concent 30.9L, Red Cell Distribution Width 14.0, Platelet Count 239, Mean Platelet Volume 6.3L, Neutrophils (%) (Auto) 66.5, Lymphocytes (%) (Auto) 12.6L, Monocytes (%) (Auto) 11.4H, Eosinophils (%) (Auto ) 8.5H, Basophils (%) (Auto) 1.0, Sodium Level 142, Potassium Level 3.5, Chloride Level 102, Carbon Dioxide Level 33H, Anion Gap 7, Blood Urea Nitrogen 11, Creatinine 0.6L, Estimat Glomerular Filtration Rate > 60, Glucose Level 113H , Calcium Level 9.3, Phosphorus Level 4.0, Magnesium Level 1.9, Total Bilirubin < 0.2, Aspartate Amino Transf (AST/SGOT) 13, Alanine Aminotransferase (ALT/SGPT ) 12, Alkaline Phosphatase 108, Total Protein 6.7, Albumin 2.5L, Globulin 4.2, Albumin/Globulin Ratio 0.5L Height (Feet): 5 Height (Inches): 9.00 Weight (Pounds): 167 Cardiovascular: normal rate Respiratory/Chest: lungs clear Extremities: other - no edema KEVIN STARR Sep 11, 2016 12:00
[2016-09-11] MEDS: Morphine Sulfate 10mg/ml Inj IVP PRN (12:32)
--- NOTE | 2016-09-11 12:56 | Infectious Diseases Prog Note ---
Assessment/Plan Assessment/Plan A; Sepsis Pneumonia VRE colonization DM Anemia History of polysubstance abuse Fungus ball Pulmonary HPN Pulmonary fibrosis P: discontinue the patient on IV vancomycin, and Merrem Continue Levaquin Subjective ROS Limited/Unobtainable: Yes Respiratory: Reports: other - decreased cough Allergies: Coded Allergies: No Known Allergies (Unverified , 09/04/16) Objective Vital Signs Last 24 Hour Vital Signs Date Time Temp Pulse Resp B/P Pulse Ox O2 Delivery O2 Flow Rate FiO2 09/11/16 11:46 98.0 82 20 122/65 98 Simple Mask 5.0 09/11/16 07:56 98 Simple Mask 6.0 09/11/16 07:56 Simple Mask 6.0 09/11/16 07:55 98.2 79 20 119/66 98 Simple Mask 5.0 09/11/16 07:55 79 16 Simple Mask 6.0 09/11/16 04:04 97.7 74 20 118/68 100 Non-Rebreather 09/11/16 00:09 98.1 78 19 124/71 100 Simple Mask 9.0 09/10/16 20:18 97.7 78 18 114/71 100 Room Air 09/10/16 20:00 96 09/10/16 19:02 Simple Mask 6.0 09/10/16 19:00 86 16 Simple Mask 6.0 09/10/16 19:00 97 Simple Mask 6.0 09/10/16 16:00 80 09/10/16 16:00 98.0 77 18 120/70 Room Air Height (Feet): 5 Height (Inches): 9.00 Weight (Pounds): 167 General Appearance: no acute distress HEENT: mucous membranes moist Respiratory/Chest: lungs clear Cardiovascular: normal rate Abdomen: soft, non tender, other - GT feeding Extremities: no edema Neurologic/Psychiatric: alert, responsive Laboratory Tests Test 09/11/16 07:30 White Blood Count 8.6 K/UL (4.8-10.8) Red Blood Count 2.86 M/UL (4.70-6.10) L Hemoglobin 8.3 G/DL (14.2-18.0) L Hematocrit 26.7 % (42.0-52.0) L Mean Corpuscular Volume 93 FL (80-99) Mean Corpuscular Hemoglobin 28.9 PG (27.0-31.0) Mean Corpuscular Hemoglobin Concent 30.9 G/DL (32.0-36.0) L Red Cell Distribution Width 14.0 % (11.6-14.8) Platelet Count 239 K/UL (150-450) Mean Platelet Volume 6.3 FL (6.5-10.1) L Neutrophils (%) (Auto) 66.5 % (45.0-75.0) Lymphocytes (%) (Auto) 12.6 % (20.0-45.0) L Monocytes (%) (Auto) 11.4 % (1.0-10.0) H Eosinophils (%) (Auto) 8.5 % (0.0-3.0) H Basophils (%) (Auto) 1.0 % (0.0-2.0) Sodium Level 142 mEQ/L (135-145) Potassium Level 3.5 mEQ/L (3.4-4.9) Chloride Level 102 mEQ/L (98-107) Carbon Dioxide Level 33 mEQ/L (20-30) H Anion Gap 7 (5-15) Blood Urea Nitrogen 11 mg/dL (7-23) Creatinine 0.6 mg/dL (0.7-1.2) L Estimat Glomerular Filtration Rate > 60 mL/min (>60) Glucose Level 113 mg/dL (74-106) H Calcium Level 9.3 mg/dL (8.6-10.2) Phosphorus Level 4.0 mg/dL (2.5-4.8) Magnesium Level 1.9 mg/dL (1.7-2.5) Total Bilirubin < 0.2 mg/dL (0.0-1.2) Aspartate Amino Transf (AST/SGOT) 13 U/L (5-40) Alanine Aminotransferase (ALT/SGPT) 12 U/L (3-41) Alkaline Phosphatase 108 U/L (40-129) Total Protein 6.7 g/dL (6.6-8.7) Albumin 2.5 g/dL (3.5-5.2) L Globulin 4.2 g/dL Albumin/Globulin Ratio 0.5 (1.0-2.7) L Current Medications Medications (Trade) Dose Ordered Sig/Cesar Route PRN Reason Start Time Stop Time Status Last Admin Dose Admin Acetaminophen (Tylenol) 650 mg Q4H PRN ORAL Mild Pain 09/11/16 03:45 10/11/16 03:44 Acetaminophen (Tylenol) 650 mg Q4H PRN RECTAL Prn Headache/Temp > 101 09/11/16 04:45 10/11/16 04:44 Albuterol/ Ipratropium (DuoNeb 0.5-3(2.5)mg/3ml) 3 ml Q4H PRN HHN Shortness of Breath 09/11/16 03:30 09/16/16 03:29 Chlordiazepoxide (Librium) 25 mg Q6H PRN ORAL Delirium Tremens 09/11/16 07:30 09/18/16 07:29 Haloperidol Lactate 5 mg/ Dextrose 56 ml @ 112 mls/hr Q1H PRN IVPB Agitation 09/11/16 02:30 10/11/16 02:29 Heparin Sodium (Porcine) (Heparin 5000 units/ml) 5,000 units EVERY 12 HOURS SUBQ 09/11/16 09:00 10/11/16 08:59 09/11/16 08:49 Lansoprazole (Prevacid) 30 mg DAILY GT 09/11/16 09:00 10/11/16 08:59 09/11/16 08:45 Levofloxacin (Levaquin 750mg/ D5W) 150 ml @ 100 mls/hr Q24H IVPB 09/11/16 18:30 09/18/16 18:29 Lorazepam (Ativan 2mg/ml 1ml) 2 mg Q1H PRN IV For Anxiety 09/11/16 03:00 09/18/16 02:59 Meropenem 1 gm/ Sodium Chloride 110 ml @ 220 mls/hr Q8HR@0400,1200,2000 IVPB 09/11/16 04:00 09/16/16 03:59 09/11/16 12:09 Morphine Sulfate (Morphine Sulfate) 6 mg Q4H PRN IVP Severe Pain (Pain Scale 7-10) 09/11/16 03:30 09/18/16 03:29 09/11/16 12:32 Ondansetron HCl (Zofran) 4 mg Q6H PRN IVP Nausea & Vomiting 09/11/16 07:30 10/11/16 07:29 Polyethylene Glycol (Miralax) 17 gm DAILYPRN PRN ORAL Constipation 09/11/16 19:30 10/11/16 19:29 Vancomycin HCl 1 ea 1 ea DAILY PRN MISC per rx protocol 09/11/16 09:00 10/11/16 08:59 Vancomycin HCl/ Dextrose (Vancomycin 1250mg/D5W 250ml) 250 ml @ 166.636 mls/hr Q12HR IVPB 09/11/16 09:00 09/16/16 08:59 09/11/16 08:47 TASHI STARR Sep 11, 2016 12:56
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
[2016-09-11] MEDS ORDERED: D5 1/2NS 1000ml IV ONE (13:45)
[2016-09-11] MEDS ORDERED: NS 275ml ONE (13:45)
[2016-09-11 16:01] VITALS: BP 132/90
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
[2016-09-11] MEDS ORDERED: Miralax 17gm pkt ORAL PRN ×3 (19:30)
[2016-09-11 20:00] VITALS: BP 138/78
[2016-09-12] VITALS (8 sets, daily range): BP systolic 124–151; BP diastolic 69–86
[2016-09-12 07:18] LABS: BASOPHILS % (AUTO) 1.1 % (0.0-2.0); EOSINOPHILS % (AUTO) 5.4 % (0.0-3.0); LYMPHOCYTES % (AUTO) 15.2 % (20.0-45.0); MEAN CORPUSCULAR HEMOGLOBIN 29.4 PG (27.0-31.0); MEAN CORPUSCULAR HGB CONC 31.6 G/DL (32.0-36.0); MEAN CORPUSCULAR VOLUME 93 FL (80-99); MEAN PLATELET VOLUME 6.4 FL (6.5-10.1); MONOCYTES % (AUTO) 12.9 % (1.0-10.0); NEUTROPHILS % (AUTO) 65.5 % (45.0-75.0); PLATELET COUNT 274 K/UL (150-450); RED BLOOD COUNT 2.79 M/UL (4.70-6.10); RED CELL DISTRIBUTION WIDTH 14.3 % (11.6-14.8); WHITE BLOOD COUNT 7.8 K/UL (4.8-10.8)
[2016-09-12 07:37] LABS: ALANINE AMINOTRANSFERASE 10 U/L (3-41); ALBUMIN/GLOBULIN RATIO 0.5 (1.0-2.7); ANION GAP 7 (5-15); ASPARTATE AMINO TRANSFERASE 15 U/L (5-40); CALCIUM 9.4 mg/dL (8.6-10.2); CARBON DIOXIDE 32 mEQ/L (20-30); CHLORIDE 102 mEQ/L (98-107); CREATININE 0.6 mg/dL (0.7-1.2); GLOMERULAR FILTRATION RATE > 60 mL/min (>60); HEMOLYSIS 6; MAGNESIUM 1.7 mg/dL (1.7-2.5); PHOSPHORUS 3.3 mg/dL (2.5-4.8); POTASSIUM 3.7 mEQ/L (3.4-4.9); SODIUM 141 mEQ/L (135-145); TOTAL PROTEIN 6.8 g/dL (6.6-8.7)
--- NOTE | 2016-09-12 07:41 | Cardiology Report ---
APPROVED REPORT EXAM: Two-dimensional and M-mode echocardiogram with Doppler and color Doppler. INDICATION Left Ventricular Function Technically difficult study due to poor acoustic windows. Study quality precludes accurate assessment of regional wall motion. M-mode measurements could not be obtained due to cardiac position. Normal left ventricular chamber size, systolic function and wall motion to extent visualized. Left ventricular ejection fraction estimated to be grossly normal. No evidence of ventricular hypertrophy. No evidence of pericardial fat or effusion. Mild right ventricular enlargement. Right atrium chamber size is within normal limits. Left atrium chamber size is within normal limits. Mild focal aortic valve sclerosis with adequate cusp excursion. Mildly thickened mitral valve leaflets with normal excursion. Mild mitral annulus and aortic root calcification. Pulmonic valve not visualized. Normal tricuspid valve structure. IVC dilated at 1.7 cm with physiologic collapse. A color flow and spectral Doppler study was performed and revealed: No aortic regurgitation. Trace mitral regurgitation. Mitral diastolic velocities suggest reduced left ventricular relaxation (Grade I). No tricuspid regurgitation. Tricuspid systolic velocities suggests peak right ventricular systolic pressure of 26 mmHg.
[2016-09-12] MEDS: Heparin 5000 units/ml inj SUBQ SCH ×2 (08:32→21:10)
[2016-09-12 09:02] LABS: L.PNEUMOPHILIA IGM SERO-1 < 1:16 (< 1:16)
--- NOTE | 2016-09-12 14:34 | Infectious Diseases Prog Note ---
Assessment/Plan Assessment/Plan ASSESSMENT: 60 y/o male with: // DANIE thick-walled cavity with fungus ball - SCx NRF, galactomannan pending - negative: legionella // Negative HIV // Leukocytosis - resolved // Fever - resolved // Chronic interstitial fibrosis // VRE colonized // NKDA // Full Code PLAN: - continue levaquin d# 2 ( ABX d# 7 / 10 ) ( 09/11 SP IV vancomycin, meropenem ) - f/u final cultures - f/u galactomanan - monitor CBC, temperatures - monitor BMP - monitor CXR Subjective Allergies: Coded Allergies: No Known Allergies (Unverified , 09/04/16) Subjective remains afebrile Objective Vital Signs Last 24 Hour Vital Signs Date Time Temp Pulse Resp B/P Pulse Ox O2 Delivery O2 Flow Rate FiO2 09/12/16 11:52 97.5 79 24 135/74 96 Room Air 09/12/16 08:15 98.1 83 22 124/69 100 Room Air 09/12/16 04:00 98.6 77 20 137/77 100 Nasal Cannula 3.0 09/12/16 00:00 98.1 78 18 127/71 98 Nasal Cannula 3.0 09/11/16 20:30 97 Nasal Cannula 09/11/16 20:20 95 Nasal Cannula 3.0 32 09/11/16 20:20 Nasal Cannula 3.0 32 09/11/16 20:20 84 18 Nasal Cannula 2.0 28 09/11/16 20:00 97.9 75 20 138/78 Nasal Cannula 3.0 09/11/16 16:01 98.2 79 20 132/90 98 Nasal Cannula 5.0 Height (Feet): 5 Height (Inches): 9.00 Weight (Pounds): 163 General Appearance: no acute distress Respiratory/Chest: no respiratory distress Cardiovascular: normal rate, regular rhythm Abdomen: normal bowel sounds, soft, non tender, non distended Laboratory Tests Test 09/12/16 05:30 09/12/16 10:14 White Blood Count 7.8 K/UL (4.8-10.8) Red Blood Count 2.79 M/UL (4.70-6.10) L Hemoglobin 8.2 G/DL (14.2-18.0) L Hematocrit 26.1 % (42.0-52.0) L Mean Corpuscular Volume 93 FL (80-99) Mean Corpuscular Hemoglobin 29.4 PG (27.0-31.0) Mean Corpuscular Hemoglobin Concent 31.6 G/DL (32.0-36.0) L Red Cell Distribution Width 14.3 % (11.6-14.8) Platelet Count 274 K/UL (150-450) Mean Platelet Volume 6.4 FL (6.5-10.1) L Neutrophils (%) (Auto) 65.5 % (45.0-75.0) Lymphocytes (%) (Auto) 15.2 % (20.0-45.0) L Monocytes (%) (Auto) 12.9 % (1.0-10.0) H Eosinophils (%) (Auto) 5.4 % (0.0-3.0) H Basophils (%) (Auto) 1.1 % (0.0-2.0) Sodium Level 141 mEQ/L (135-145) Potassium Level 3.7 mEQ/L (3.4-4.9) Chloride Level 102 mEQ/L (98-107) Carbon Dioxide Level 32 mEQ/L (20-30) H Anion Gap 7 (5-15) Blood Urea Nitrogen 11 mg/dL (7-23) Creatinine 0.6 mg/dL (0.7-1.2) L Estimat Glomerular Filtration Rate > 60 mL/min (>60) Glucose Level 101 mg/dL (74-106) Calcium Level 9.4 mg/dL (8.6-10.2) Phosphorus Level 3.3 mg/dL (2.5-4.8) Magnesium Level 1.7 mg/dL (1.7-2.5) Total Bilirubin < 0.2 mg/dL (0.0-1.2) Aspartate Amino Transf (AST/SGOT) 15 U/L (5-40) Alanine Aminotransferase (ALT/SGPT) 10 U/L (3-41) Alkaline Phosphatase 116 U/L (40-129) Total Protein 6.8 g/dL (6.6-8.7) Albumin 2.5 g/dL (3.5-5.2) L Globulin 4.3 g/dL Albumin/Globulin Ratio 0.5 (1.0-2.7) L Aspergillus galactomannan Antigen Pending Current Medications Medications (Trade) Dose Ordered Sig/Cesar Route PRN Reason Start Time Stop Time Status Last Admin Dose Admin Acetaminophen (Tylenol) 650 mg Q4H PRN ORAL Mild Pain 09/11/16 03:45 10/11/16 03:44 Acetaminophen (Tylenol) 650 mg Q4H PRN RECTAL Prn Headache/Temp > 101 09/11/16 04:45 10/11/16 04:44 Albuterol/ Ipratropium (DuoNeb 0.5-3(2.5)mg/3ml) 3 ml Q4H PRN HHN Shortness of Breath 09/11/16 03:30 09/16/16 03:29 Chlordiazepoxide (Librium) 25 mg Q6H PRN ORAL Delirium Tremens 09/11/16 07:30 09/18/16 07:29 Heparin Sodium (Porcine) (Heparin 5000 units/ml) 5,000 units EVERY 12 HOURS SUBQ 09/11/16 09:00 10/11/16 08:59 09/12/16 08:32 Lansoprazole (Prevacid) 30 mg DAILY GT 09/11/16 09:00 10/11/16 08:59 09/12/16 08:31 Levofloxacin (Levaquin) 750 mg Q24H GT 09/11/16 18:00 09/18/16 17:59 09/11/16 18:18 Lorazepam (Ativan 2mg/ml 1ml) 2 mg Q1H PRN IV For Anxiety 09/11/16 03:00 09/18/16 02:59 Morphine Sulfate (Morphine Sulfate) 6 mg Q4H PRN IVP Severe Pain (Pain Scale 7-10) 09/11/16 03:30 09/18/16 03:29 09/11/16 12:32 Ondansetron HCl (Zofran) 4 mg Q6H PRN IVP Nausea & Vomiting 09/11/16 07:30 10/11/16 07:29 Polyethylene Glycol (Miralax) 17 gm DAILYPRN PRN ORAL Constipation 09/11/16 19:30 10/11/16 19:29 NILA EASON Sep 12, 2016 14:34
--- NOTE | 2016-09-12 16:44 | Nephrology Progress Note ---
Assessment/Plan Problem List: (1) Hypernatremia Assessment: ok (2) Hypoglycemia Assessment: ok (3) Anemia Assessment: slightly worse Plan cont with abxs follow labs Dr méndez will resume care tomorrow Subjective Subjective in NAD Objective Objective Last 24 Hour Vital Signs Date Time Temp Pulse Resp B/P Pulse Ox O2 Delivery O2 Flow Rate FiO2 09/12/16 11:52 97.5 79 24 135/74 96 Room Air 09/12/16 08:15 98.1 83 22 124/69 100 Room Air 09/12/16 04:00 98.6 77 20 137/77 100 Nasal Cannula 3.0 09/12/16 00:00 98.1 78 18 127/71 98 Nasal Cannula 3.0 09/11/16 20:30 97 Nasal Cannula 09/11/16 20:20 95 Nasal Cannula 3.0 32 09/11/16 20:20 Nasal Cannula 3.0 32 09/11/16 20:20 84 18 Nasal Cannula 2.0 28 09/11/16 20:00 97.9 75 20 138/78 Nasal Cannula 3.0 Intake and Output 09/11/16 09/12/16 19:00 07:00 Intake Total 900 ml 1260 ml Output Total 450 ml Balance 900 ml 810 ml Free Water 600 ml 900 ml Tube Feeding 300 ml 360 ml Output Urine Total 450 ml # Voids 2 # Bowel Movements 2 1 Laboratory Tests 09/12/16 05:30: White Blood Count 7.8, Red Blood Count 2.79L, Hemoglobin 8.2L, Hematocrit 26.1L , Mean Corpuscular Volume 93, Mean Corpuscular Hemoglobin 29.4, Mean Corpuscular Hemoglobin Concent 31.6L, Red Cell Distribution Width 14.3, Platelet Count 274, Mean Platelet Volume 6.4L, Neutrophils (%) (Auto) 65.5, Lymphocytes (%) (Auto) 15.2L, Monocytes (%) (Auto) 12.9H, Eosinophils (%) (Auto ) 5.4H, Basophils (%) (Auto) 1.1, Sodium Level 141, Potassium Level 3.7, Chloride Level 102, Carbon Dioxide Level 32H, Anion Gap 7, Blood Urea Nitrogen 11, Creatinine 0.6L, Estimat Glomerular Filtration Rate > 60, Glucose Level 101 , Calcium Level 9.4, Phosphorus Level 3.3, Magnesium Level 1.7, Total Bilirubin < 0.2, Aspartate Amino Transf (AST/SGOT) 15, Alanine Aminotransferase (ALT/SGPT ) 10, Alkaline Phosphatase 116, Total Protein 6.8, Albumin 2.5L, Globulin 4.3, Albumin/Globulin Ratio 0.5L 09/12/16 10:14: Aspergillus galactomannan Antigen [Pending] Height (Feet): 5 Height (Inches): 9.00 Weight (Pounds): 163 Cardiovascular: normal rate Respiratory/Chest: lungs clear KEVIN STARR Sep 12, 2016 16:44
[2016-09-12] MEDS: Morphine Sulfate 10mg/ml Inj IVP PRN (17:26)
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
[2016-09-13] VITALS (7 sets, daily range): BP systolic 138–150; BP diastolic 67–85
[2016-09-13] MEDS: Heparin 5000 units/ml inj SUBQ SCH ×2 (09:04→22:11)
--- NOTE | 2016-09-13 12:07 | Infectious Diseases Prog Note ---
Assessment/Plan Assessment/Plan ASSESSMENT: 60 y/o male with: // DANIE thick-walled cavity with fungus ball - SCx NRF, galactomannan pending - negative: legionella // Negative HIV // Leukocytosis - resolved // Fever - resolved // Chronic interstitial fibrosis // VRE colonized // NKDA // Full Code PLAN: - continue levaquin d# 3 ( ABX d# 8 / 10 ) ( 09/11 SP IV vancomycin, meropenem ) - f/u final cultures - f/u galactomanan - monitor CBC, temperatures - monitor BMP - monitor CXR Subjective Allergies: Coded Allergies: No Known Allergies (Unverified , 09/04/16) Subjective remains afebrile Objective Vital Signs Last 24 Hour Vital Signs Date Time Temp Pulse Resp B/P Pulse Ox O2 Delivery O2 Flow Rate FiO2 09/13/16 08:26 97.7 91 19 150/80 90 Room Air 09/13/16 07:16 95 Nasal Cannula 2.0 09/13/16 07:16 Nasal Cannula 2.0 09/13/16 07:16 76 18 Nasal Cannula 2.0 09/13/16 04:10 97.9 91 17 150/82 93 Room Air 09/13/16 00:01 98.1 89 18 138/79 93 Room Air 09/12/16 21:31 71 18 Nasal Cannula 2.0 28 09/12/16 20:13 98.2 94 19 136/71 91 Room Air 09/12/16 20:00 97.0 86 21 143/86 96 Room Air 09/12/16 19:15 96 Nasal Cannula 3.0 32 09/12/16 19:15 Nasal Cannula 3.0 32 09/12/16 18:09 97.5 87 17 151/86 92 Nasal Cannula 09/12/16 17:56 97.5 09/12/16 16:00 97.5 87 17 151/86 92 Room Air Height (Feet): 5 Height (Inches): 9.00 Weight (Pounds): 164 General Appearance: no acute distress Respiratory/Chest: no respiratory distress Cardiovascular: normal rate, regular rhythm Abdomen: normal bowel sounds, soft, non tender, non distended Current Medications Medications (Trade) Dose Ordered Sig/Cesar Route PRN Reason Start Time Stop Time Status Last Admin Dose Admin Acetaminophen (Tylenol) 650 mg Q4H PRN ORAL Mild Pain 09/11/16 03:45 10/11/16 03:44 Acetaminophen (Tylenol) 650 mg Q4H PRN RECTAL Prn Headache/Temp > 101 09/11/16 04:45 10/11/16 04:44 Albuterol/ Ipratropium (DuoNeb 0.5-3(2.5)mg/3ml) 3 ml Q4H PRN HHN Shortness of Breath 09/11/16 03:30 09/16/16 03:29 Chlordiazepoxide (Librium) 25 mg Q6H PRN ORAL Delirium Tremens 09/11/16 07:30 09/18/16 07:29 Heparin Sodium (Porcine) (Heparin 5000 units/ml) 5,000 units EVERY 12 HOURS SUBQ 09/11/16 09:00 10/11/16 08:59 09/13/16 09:04 Lansoprazole (Prevacid) 30 mg DAILY GT 09/11/16 09:00 10/11/16 08:59 09/13/16 09:04 Levofloxacin (Levaquin) 750 mg Q24H GT 09/11/16 18:00 09/18/16 17:59 09/12/16 18:05 Lorazepam (Ativan 2mg/ml 1ml) 2 mg Q1H PRN IV For Anxiety 09/11/16 03:00 09/18/16 02:59 Morphine Sulfate (Morphine Sulfate) 6 mg Q4H PRN IVP Severe Pain (Pain Scale 7-10) 09/11/16 03:30 09/18/16 03:29 09/12/16 17:26 Ondansetron HCl (Zofran) 4 mg Q6H PRN IVP Nausea & Vomiting 09/11/16 07:30 10/11/16 07:29 Polyethylene Glycol (Miralax) 17 gm DAILYPRN PRN ORAL Constipation 09/11/16 19:30 10/11/16 19:29 NILA EASON Sep 13, 2016 12:07
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
[2016-09-14] VITALS: BP 143/81
[2016-09-14 04:00] VITALS: BP 126/68
[2016-09-14] MEDS: Heparin 5000 units/ml inj SUBQ SCH ×2 (08:23→20:47)
[2016-09-14 08:47] VITALS: BP 150/83
[2016-09-14] MEDS: Morphine Sulfate 10mg/ml Inj IVP PRN (10:39)
[2016-09-14 12:20] VITALS: BP 135/75
[2016-09-14 16:32] VITALS: BP 134/78
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
[2016-09-14 20:01] VITALS: BP 143/82
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
[2016-09-15] VITALS (7 sets, daily range): BP systolic 122–140; BP diastolic 74–86
[2016-09-15] MEDS: Heparin 5000 units/ml inj SUBQ SCH ×2 (08:55→20:54)
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
--- NOTE | 2016-09-15 14:56 | Infectious Diseases Prog Note ---
Assessment/Plan Assessment/Plan A; Sepsis Pneumonia VRE colonization DM Anemia History of polysubstance abuse Fungus ball Pulmonary HPN Pulmonary fibrosis P: Continue Levaquin Subjective ROS Limited/Unobtainable: No Constitutional: Reports: no symptoms Respiratory: Reports: dry cough Cardiovascular: Reports: no symptoms Gastrointestinal/Abdominal: Reports: no symptoms Genitourinary: Reports: no symptoms Musculoskeletal: Reports: other - in kness, pain Allergies: Coded Allergies: No Known Allergies (Unverified , 09/04/16) Objective Vital Signs Last 24 Hour Vital Signs Date Time Temp Pulse Resp B/P Pulse Ox O2 Delivery O2 Flow Rate FiO2 09/15/16 12:37 97.9 09/15/16 11:45 97.9 84 19 136/77 96 Room Air 09/15/16 08:23 98.1 88 20 122/74 97 Room Air 09/15/16 07:48 88 18 Room Air 09/15/16 04:00 97.5 85 18 140/78 96 Room Air 09/15/16 00:00 97.9 88 20 138/78 Room Air 09/14/16 20:01 98.1 87 20 143/82 97 Room Air 09/14/16 19:00 Room Air 09/14/16 19:00 96 Room Air 09/14/16 19:00 75 18 Room Air 09/14/16 16:32 97.9 84 19 134/78 98 Room Air Height (Feet): 5 Height (Inches): 9.00 Weight (Pounds): 154 General Appearance: no acute distress HEENT: mucous membranes moist Respiratory/Chest: lungs clear Cardiovascular: normal rate Abdomen: soft, non tender, other - GT feeding Extremities: no edema, other - scar of R knee surgery Neurologic/Psychiatric: alert, responsive Musculoskeletal: atrophy Current Medications Medications (Trade) Dose Ordered Sig/Cesar Route PRN Reason Start Time Stop Time Status Last Admin Dose Admin Acetaminophen (Tylenol) 650 mg Q4H PRN ORAL Mild Pain 09/11/16 03:45 10/11/16 03:44 09/15/16 11:38 Acetaminophen (Tylenol) 650 mg Q4H PRN RECTAL Prn Headache/Temp > 101 09/11/16 04:45 10/11/16 04:44 Albuterol/ Ipratropium (DuoNeb 0.5-3(2.5)mg/3ml) 3 ml Q4H PRN HHN Shortness of Breath 09/11/16 03:30 09/16/16 03:29 Chlordiazepoxide (Librium) 25 mg Q6H PRN ORAL Delirium Tremens 09/11/16 07:30 09/18/16 07:29 Heparin Sodium (Porcine) (Heparin 5000 units/ml) 5,000 units EVERY 12 HOURS SUBQ 09/11/16 09:00 10/11/16 08:59 09/15/16 08:55 Lansoprazole (Prevacid) 30 mg DAILY GT 09/11/16 09:00 10/11/16 08:59 09/15/16 08:53 Levofloxacin (Levaquin) 750 mg Q24H GT 09/11/16 18:00 09/18/16 17:59 09/14/16 18:16 Lorazepam (Ativan 2mg/ml 1ml) 2 mg Q1H PRN IV For Anxiety 09/11/16 03:00 09/18/16 02:59 Morphine Sulfate (Morphine Sulfate) 6 mg Q4H PRN IVP Severe Pain (Pain Scale 7-10) 09/11/16 03:30 09/18/16 03:29 09/14/16 10:39 Ondansetron HCl (Zofran) 4 mg Q6H PRN IVP Nausea & Vomiting 09/11/16 07:30 10/11/16 07:29 Polyethylene Glycol (Miralax) 17 gm DAILYPRN PRN ORAL Constipation 09/11/16 19:30 10/11/16 19:29 TASHI STARR Sep 15, 2016 14:56
[2016-09-16] VITALS: BP 124/80
[2016-09-16 04:00] VITALS: BP 119/79
[2016-09-16 08:00] VITALS: BP 128/73
[2016-09-16] MEDS: Morphine Sulfate 10mg/ml Inj IVP PRN ×2 (09:59→21:28)
[2016-09-16] MEDS: Heparin 5000 units/ml inj SUBQ SCH ×2 (10:01→21:29)
--- NOTE | 2016-09-16 10:20 | Infectious Diseases Prog Note ---
Assessment/Plan Assessment/Plan ASSESSMENT: 60 y/o male with: // DANIE thick-walled cavity with fungus ball - SCx NRF, galactomannan pending - negative: legionella // Negative HIV // Leukocytosis - resolved // Fever - resolved // Chronic interstitial fibrosis // h/o polysubstance abuse // VRE colonized // NKDA // Full Code PLAN: - continue levaquin d# 6 ( ABX d# 11 / ) ( 09/11 SP IV vancomycin, meropenem ) - f/u galactomanan - monitor CBC, temperatures, re-culture if acute change - monitor BMP - monitor CXR Subjective Allergies: Coded Allergies: No Known Allergies (Unverified , 09/04/16) Subjective remains afebrile Objective Vital Signs Last 24 Hour Vital Signs Date Time Temp Pulse Resp B/P Pulse Ox O2 Delivery O2 Flow Rate FiO2 09/16/16 08:00 97.5 86 18 128/73 98 Room Air 09/16/16 07:53 76 18 Room Air 09/16/16 04:00 97.6 80 18 119/79 98 Room Air 09/16/16 00:00 97.9 82 18 124/80 97 Room Air 09/15/16 20:00 98.2 88 18 128/76 Room Air 09/15/16 19:32 81 18 Room Air 09/15/16 16:00 98.1 84 20 134/86 97 Room Air 09/15/16 15:57 98.2 82 18 128/77 99 Room Air 09/15/16 12:37 97.9 09/15/16 11:45 97.9 84 19 136/77 96 Room Air Height (Feet): 5 Height (Inches): 9.00 Weight (Pounds): 159 General Appearance: no acute distress Respiratory/Chest: no respiratory distress Cardiovascular: normal rate, regular rhythm Abdomen: normal bowel sounds, soft, non tender, non distended Current Medications Medications (Trade) Dose Ordered Sig/Cesar Route PRN Reason Start Time Stop Time Status Last Admin Dose Admin Acetaminophen (Tylenol) 650 mg Q4H PRN ORAL Mild Pain 09/11/16 03:45 10/11/16 03:44 09/15/16 11:38 Acetaminophen (Tylenol) 650 mg Q4H PRN RECTAL Prn Headache/Temp > 101 09/11/16 04:45 8/25/17 04:44 Chlordiazepoxide (Librium) 25 mg Q6H PRN ORAL Delirium Tremens 09/11/16 07:30 09/18/16 07:29 Heparin Sodium (Porcine) (Heparin 5000 units/ml) 5,000 units EVERY 12 HOURS SUBQ 09/11/16 09:00 10/11/16 08:59 09/16/16 10:01 Lansoprazole (Prevacid) 30 mg DAILY GT 09/11/16 09:00 10/11/16 08:59 09/16/16 09:58 Levofloxacin (Levaquin) 750 mg Q24H GT 09/11/16 18:00 09/18/16 17:59 09/15/16 17:10 Lorazepam (Ativan 2mg/ml 1ml) 2 mg Q1H PRN IV For Anxiety 09/11/16 03:00 09/18/16 02:59 Morphine Sulfate (Morphine Sulfate) 6 mg Q4H PRN IVP Severe Pain (Pain Scale 7-10) 09/11/16 03:30 09/18/16 03:29 09/16/16 09:59 Ondansetron HCl (Zofran) 4 mg Q6H PRN IVP Nausea & Vomiting 09/11/16 07:30 10/11/16 07:29 Polyethylene Glycol (Miralax) 17 gm DAILYPRN PRN ORAL Constipation 09/11/16 19:30 10/11/16 19:29 NILA EASON Sep 16, 2016 10:20
[2016-09-16 10:46] LABS: BASOPHILS % (AUTO) 1.4 % (0.0-2.0); EOSINOPHILS % (AUTO) 2.9 % (0.0-3.0); LYMPHOCYTES % (AUTO) 14.6 % (20.0-45.0); MEAN CORPUSCULAR HEMOGLOBIN 29.1 PG (27.0-31.0); MEAN CORPUSCULAR HGB CONC 31.6 G/DL (32.0-36.0); MEAN CORPUSCULAR VOLUME 92 FL (80-99); MEAN PLATELET VOLUME 6.1 FL (6.5-10.1); MONOCYTES % (AUTO) 13.8 % (1.0-10.0); NEUTROPHILS % (AUTO) 67.3 % (45.0-75.0); PLATELET COUNT 363 K/UL (150-450); RED BLOOD COUNT 3.57 M/UL (4.70-6.10); RED CELL DISTRIBUTION WIDTH 14.6 % (11.6-14.8)
[2016-09-16 11:05] LABS: ALANINE AMINOTRANSFERASE 10 U/L (3-41); ALBUMIN/GLOBULIN RATIO 0.6 (1.0-2.7); ANION GAP 11 (5-15); ASPARTATE AMINO TRANSFERASE 15 U/L (5-40); CALCIUM 9.9 mg/dL (8.6-10.2); CARBON DIOXIDE 26 mEQ/L (20-30); CHLORIDE 97 mEQ/L (98-107); CREATININE 0.7 mg/dL (0.7-1.2); GLOMERULAR FILTRATION RATE > 60 mL/min (>60); HEMOLYSIS 0; POTASSIUM 4.6 mEQ/L (3.4-4.9); SODIUM 134 mEQ/L (135-145); TOTAL PROTEIN 8.2 g/dL (6.6-8.7)
--- NOTE | 2016-09-16 11:06 | Diagnostic Imaging Report ---
Indication: DYSPNEA Technique: One view of the chest Comparison: 09/08/2016 Findings: There is decreased but persistent infiltrate in the left mid and lower lung. There is decrease infiltrate in the right mid and lower lung as well. Left apical cavitary lesion with fungus ball, right apical fibronodular opacities persists. Healed left or fracture deformities are again demonstrated. Heart size is normal. Pleural spaces are clear. No new infiltrates Impression: Improved but persistent bilateral mid and lower lung infiltrates versus edema, over 8 days Other findings as described
[2016-09-16 12:00] VITALS: BP 130/74
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
[2016-09-16 16:00] VITALS: BP 113/76
[2016-09-16 20:00] VITALS: BP 115/79
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
[2016-09-17] VITALS: BP 109/67
--- NOTE | 2016-09-17 02:31 | Wound Nurse Progress Note ---
Wound RN Progress Note Wound Consult 15 dougie removed from right lateral upper thigh as ordered. Pt tolerated well. No bleeding nor any discharges noted from the site. SHABBIR GARCIA RN Sep 17, 2016 02:31
[2016-09-17 04:00] VITALS: BP 108/64
[2016-09-17 08:00] VITALS: BP 102/72
[2016-09-17] MEDS: Heparin 5000 units/ml inj SUBQ SCH ×2 (09:19→21:24)
[2016-09-17 12:00] VITALS: BP 105/67
--- NOTE | 2016-09-17 15:28 | Infectious Diseases Prog Note ---
Assessment/Plan Assessment/Plan ASSESSMENT: 60 y/o male with: // DANIE thick-walled cavity with fungus ball - SCx NRF, galactomannan pending - negative: legionella // Negative HIV // Leukocytosis - resolved // Fever - resolved // Chronic interstitial fibrosis // h/o polysubstance abuse // VRE colonized // NKDA // Full Code PLAN: - continue levaquin d# 7 ( ABX d# 12 / 14 ) ( 09/11 SP IV vancomycin, meropenem ) - f/u galactomanan - monitor CBC, temperatures, re-culture if acute change - monitor BMP - monitor CXR Subjective Allergies: Coded Allergies: No Known Allergies (Unverified , 09/04/16) Subjective remains afebrile DC planning ongoing Objective Vital Signs Last 24 Hour Vital Signs Date Time Temp Pulse Resp B/P Pulse Ox O2 Delivery O2 Flow Rate FiO2 09/17/16 12:00 98.1 84 18 105/67 95 Room Air 09/17/16 08:00 98.1 84 18 102/72 99 Room Air 09/17/16 04:00 98.1 64 20 108/64 97 Room Air 09/17/16 00:00 97.9 64 20 109/67 98 Room Air 09/16/16 21:58 98.1 09/16/16 20:50 82 16 Room Air 09/16/16 20:00 98.1 89 20 115/79 97 Room Air 09/16/16 16:00 98.1 84 16 113/76 98 Room Air Height (Feet): 5 Height (Inches): 9.00 Weight (Pounds): 155 General Appearance: no acute distress Respiratory/Chest: no respiratory distress Cardiovascular: normal rate, regular rhythm Abdomen: normal bowel sounds, soft, non tender, non distended Current Medications Medications (Trade) Dose Ordered Sig/Cesar Route PRN Reason Start Time Stop Time Status Last Admin Dose Admin Acetaminophen (Tylenol) 650 mg Q4H PRN ORAL Mild Pain 09/11/16 03:45 10/11/16 03:44 09/17/16 09:26 Acetaminophen (Tylenol) 650 mg Q4H PRN RECTAL Prn Headache/Temp > 101 09/11/16 04:45 10/11/16 04:44 Chlordiazepoxide (Librium) 25 mg Q6H PRN ORAL Delirium Tremens 09/11/16 07:30 09/18/16 07:29 Heparin Sodium (Porcine) (Heparin 5000 units/ml) 5,000 units EVERY 12 HOURS SUBQ 09/11/16 09:00 10/11/16 08:59 09/17/16 09:19 Lansoprazole (Prevacid) 30 mg DAILY GT 09/11/16 09:00 10/11/16 08:59 09/17/16 09:17 Levofloxacin (Levaquin) 750 mg Q24H GT 09/11/16 18:00 09/18/16 17:59 09/16/16 18:21 Lorazepam (Ativan 2mg/ml 1ml) 2 mg Q1H PRN IV For Anxiety 09/11/16 03:00 09/18/16 02:59 Morphine Sulfate (Morphine Sulfate) 6 mg Q4H PRN IVP Severe Pain (Pain Scale 7-10) 09/11/16 03:30 09/18/16 03:29 09/16/16 21:28 Ondansetron HCl (Zofran) 4 mg Q6H PRN IVP Nausea & Vomiting 09/11/16 07:30 10/11/16 07:29 Polyethylene Glycol (Miralax) 17 gm DAILYPRN PRN ORAL Constipation 09/11/16 19:30 10/11/16 19:29 NILA EASON Sep 17, 2016 15:28
[2016-09-17 15:52] VITALS: BP 106/66
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
[2016-09-17 20:00] VITALS: BP 107/74
[2016-09-17] MEDS: Morphine Sulfate 10mg/ml Inj IVP PRN (21:21)
[2016-09-18] VITALS: BP 120/68
[2016-09-18 03:56] VITALS: BP 114/66
[2016-09-18 07:20] VITALS: BP 109/70
[2016-09-18] MEDS: Heparin 5000 units/ml inj SUBQ SCH ×2 (09:19→20:25)
[2016-09-18] MEDS ORDERED: Tubing IV Secondary IV ONE (10:03)
[2016-09-18] MEDS ORDERED: NS 275ml ONE (10:03)
[2016-09-18 12:00] VITALS: BP 103/66
--- NOTE | 2016-09-18 12:40 | Infectious Diseases Prog Note ---
Assessment/Plan Assessment/Plan ASSESSMENT: 60 y/o male with: // DANIE thick-walled cavity with fungus ball - SCx NRF, galactomannan pending - negative: legionella // Negative HIV // Leukocytosis - resolved // Fever - resolved // Chronic interstitial fibrosis // h/o polysubstance abuse // VRE colonized // NKDA // Full Code PLAN: - continue levaquin d# 8 ( ABX d# 13 / 14 ) ( 09/11 SP IV vancomycin, meropenem ) - f/u galactomanan - monitor CBC, temperatures, re-culture if acute change - monitor BMP - monitor CXR Subjective Allergies: Coded Allergies: No Known Allergies (Unverified , 09/04/16) Subjective remains afebrile DC planning ongoing Objective Vital Signs Last 24 Hour Vital Signs Date Time Temp Pulse Resp B/P Pulse Ox O2 Delivery O2 Flow Rate FiO2 09/18/16 07:20 98.1 85 18 109/70 100 09/18/16 03:56 97.8 81 18 114/66 97 Room Air 09/18/16 00:00 97.9 84 18 120/68 98 Room Air 09/17/16 21:51 98.1 09/17/16 20:00 98.1 70 18 107/74 97 Room Air 09/17/16 15:52 97.7 84 18 106/66 100 Room Air Height (Feet): 5 Height (Inches): 9.00 Weight (Pounds): 158 General Appearance: no acute distress Respiratory/Chest: no respiratory distress Cardiovascular: normal rate, regular rhythm Abdomen: normal bowel sounds, soft, non tender, non distended Current Medications Medications (Trade) Dose Ordered Sig/Cesar Route PRN Reason Start Time Stop Time Status Last Admin Dose Admin Acetaminophen (Tylenol) 650 mg Q4H PRN ORAL Mild Pain 09/11/16 03:45 10/11/16 03:44 09/17/16 09:26 Acetaminophen (Tylenol) 650 mg Q4H PRN RECTAL Prn Headache/Temp > 101 09/11/16 04:45 10/11/16 04:44 Heparin Sodium (Porcine) (Heparin 5000 units/ml) 5,000 units EVERY 12 HOURS SUBQ 09/11/16 09:00 10/11/16 08:59 09/18/16 09:19 Lansoprazole (Prevacid) 30 mg DAILY GT 09/11/16 09:00 10/11/16 08:59 09/18/16 09:16 Levofloxacin (Levaquin) 750 mg Q24H GT 09/11/16 18:00 09/18/16 17:59 09/17/16 17:44 Ondansetron HCl (Zofran) 4 mg Q6H PRN IVP Nausea & Vomiting 09/11/16 07:30 10/11/16 07:29 Polyethylene Glycol (Miralax) 17 gm DAILYPRN PRN ORAL Constipation 09/11/16 19:30 10/11/16 19:29 NILA EASON Sep 18, 2016 12:40
[2016-09-18 16:00] VITALS: BP 107/68
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
[2016-09-18 20:00] VITALS: BP 113/73
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
[2016-09-19 00:25] VITALS: BP 108/69
[2016-09-19 04:00] VITALS: BP 104/68
[2016-09-19 08:00] VITALS: BP 104/70
[2016-09-19] MEDS: Heparin 5000 units/ml inj SUBQ SCH ×2 (09:44→21:09)
[2016-09-19 12:00] VITALS: BP 106/66
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
[2016-09-19 16:02] VITALS: BP 102/48
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
--- NOTE | 2016-09-19 16:32 | Diagnostic Imaging Report ---
Indication: Dysphasia Procedure and findings: Real-time fluoroscopic imaging performed in a lateral projection in conjunction with the speech pathologist evaluation. Variable consistencies of barium given per mouth. Findings: Significant abnormalities of both oral and pharyngeal phases of swallowing are demonstrated. Total fluoroscopic time 134 seconds. Trace aspiration was noted with thin barium and nectar. Significant aspiration noted with thick liquids following a moderate residual. Abnormal video swallow. Please refer to speech pathology evaluation for more information.
--- NOTE | 2016-09-19 18:14 | Infectious Diseases Prog Note ---
Assessment/Plan Assessment/Plan ASSESSMENT: 60 y/o male with: // DANIE thick-walled cavity with presumed fungus ball - SCx NRF, galactomannan pending - negative: legionella has large DANIE 4cm cavity and a smaller r sided cavity. 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 will need repeat CT chest in the next 2 months to follow up whether there still appears to be some degree of inflammation around that DANIE cavity and the r sided cavity. If this is the case , and his pending galactomannan proves to be positive, then at that time would need treatment for CCPA likely with voriconazole. If on f/u imaging that is not the case, then systemic antifungal therapy for a simple aspergilloma--with resolved HCAP--would not be indicated. //RLL pneumonia--completing levofloxacin today, with normalization of WBC from initial 25k, afebrile. // Negative HIV // Leukocytosis - resolved // Fever - resolved // Chronic interstitial fibrosis // h/o polysubstance abuse // VRE colonized // NKDA // Full Code PLAN: - continue levaquin d# 9 ( ABX d# 14 / 14 ), final dose today. ( 09/11 SP IV vancomycin, meropenem ) - f/u galactomanan - repeat CT chest as outpatient in 2 months to r/o Chronic cavitary pulmonary aspergillosis vs simple aspergilloma. - monitor CBC, temperatures, re-culture if acute change - monitor BMP - monitor CXR Subjective Constitutional: Reports: no symptoms HEENT: Reports: no symptoms Respiratory: Reports: no symptoms Gastrointestinal/Abdominal: Reports: no symptoms Genitourinary: Reports: no symptoms Skin: Reports: no symptoms Musculoskeletal: Reports: no symptoms Allergies: Coded Allergies: No Known Allergies (Unverified , 09/04/16) Objective Vital Signs Last 24 Hour Vital Signs Date Time Temp Pulse Resp B/P Pulse Ox O2 Delivery O2 Flow Rate FiO2 09/19/16 16:02 97.6 82 17 102/48 97 Room Air 09/19/16 12:00 98.4 82 20 106/66 98 Room Air 09/19/16 08:00 97.6 88 18 104/70 99 Room Air 09/19/16 04:00 98.1 83 17 104/68 97 Room Air 09/19/16 00:25 98.2 82 18 108/69 100 Room Air 09/18/16 21:36 98.0 09/18/16 20:00 98.3 84 16 113/73 99 Room Air 84 Height (Feet): 5 Height (Inches): 9.00 Weight (Pounds): 152 General Appearance: no acute distress HEENT: anicteric, other - prior trach site healing with sutures in place Respiratory/Chest: other - decreased breath sound at L upper lung field Cardiovascular: normal rate, regular rhythm Abdomen: soft, non tender, no organomegaly, other - g tube in place, no surrounding erythema Genitourinary: other - no boss in place Extremities: no cyanosis, no edema Skin: no rash Musculoskeletal: atrophy Current Medications Medications (Trade) Dose Ordered Sig/Cesar Route PRN Reason Start Time Stop Time Status Last Admin Dose Admin Acetaminophen (Tylenol) 650 mg Q4H PRN ORAL Mild Pain 09/11/16 03:45 10/11/16 03:44 09/18/16 20:36 Acetaminophen (Tylenol) 650 mg Q4H PRN RECTAL Prn Headache/Temp > 101 09/11/16 04:45 10/11/16 04:44 Heparin Sodium (Porcine) (Heparin 5000 units/ml) 5,000 units EVERY 12 HOURS SUBQ 09/11/16 09:00 10/11/16 08:59 09/19/16 09:44 Lansoprazole (Prevacid) 30 mg DAILY GT 09/11/16 09:00 10/11/16 08:59 09/19/16 09:34 Levofloxacin (Levaquin) 750 mg Q24H GT 09/19/16 18:00 09/20/16 18:01 09/19/16 17:28 Ondansetron HCl (Zofran) 4 mg Q6H PRN IVP Nausea & Vomiting 09/11/16 07:30 10/11/16 07:29 Polyethylene Glycol (Miralax) 17 gm DAILYPRN PRN ORAL Constipation 09/11/16 19:30 10/11/16 19:29 Vernon Rice M.D. Sep 19, 2016 18:14
[2016-09-19 20:00] VITALS: BP 101/65
[2016-09-20 00:17] VITALS: BP 111/73
[2016-09-20 04:44] VITALS: BP 117/71
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
[2016-09-20 08:34] VITALS: BP 103/67
[2016-09-20] MEDS: Heparin 5000 units/ml inj SUBQ SCH ×2 (10:11→21:20)
[2016-09-20 12:30] VITALS: BP 113/75
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
--- NOTE | 2016-09-20 16:46 | Infectious Diseases Prog Note ---
Assessment/Plan Assessment/Plan ASSESSMENT: 60 y/o male with: // DANIE thick-walled cavity with presumed fungus ball - SCx Nl resp watson, galactomannan pending - negative: legionella has large DANIE 4cm cavity and a smaller r sided cavity. 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 will need repeat CT chest in the next 2 months to follow up whether there still appears to be some degree of inflammation around that DANIE cavity and the r sided cavity. If this is the case , and his pending galactomannan proves to be positive, then at that time would need treatment for CCPA likely with voriconazole. If on f/u imaging that is not the case, then systemic antifungal therapy for a simple aspergilloma--with resolved HCAP--would not be indicated. His imaging is not consistent with pulmonary abscess, so don't recommend long course of abx. //RLL pneumonia--completing levofloxacin today, with normalization of WBC from initial 25k, afebrile. // Negative HIV // Leukocytosis - resolved // Fever - resolved // Chronic interstitial fibrosis c/b severe bronchiectasis and chronic cavitary lung disease // h/o polysubstance abuse // VRE colonized // NKDA // Full Code PLAN: - d/c levaquin d# 10 ( ABX d# 14 / 14 ) after final dose today. ( 09/11 SP IV vancomycin, meropenem ) - f/u galactomanan - repeat CT chest as outpatient in 2 months to r/o Chronic cavitary pulmonary aspergillosis vs simple aspergilloma. - r/o low likelihood of alternative causes of cavitary disease with serum CrAG, Cocci Ab, RALPH, ANCA, but radiographically he has chronic pulmonary fibrosis c/b cavities. verbal report of prior neg TB w/u from outside hospital. - monitor CBC, temperatures, re-culture if acute change - monitor BMP - monitor CXR Subjective ROS Limited/Unobtainable: Yes Allergies: Coded Allergies: No Known Allergies (Unverified , 09/04/16) Objective Vital Signs Last 24 Hour Vital Signs Date Time Temp Pulse Resp B/P Pulse Ox O2 Delivery O2 Flow Rate FiO2 09/20/16 12:30 98.1 77 18 113/75 99 Room Air 09/20/16 08:34 98.1 78 20 103/67 97 Room Air 09/20/16 04:44 98.7 19 117/71 97 Room Air 09/20/16 00:17 98.6 79 20 111/73 98 Room Air 09/19/16 22:25 98.6 09/19/16 20:00 98.6 84 20 101/65 98 Room Air Height (Feet): 5 Height (Inches): 9.00 Weight (Pounds): 151 Objective General Appearance: no acute distress HEENT: anicteric, other - prior trach site healing with sutures in place Respiratory/Chest: other - decreased breath sound at L upper lung field Cardiovascular: normal rate, regular rhythm Abdomen: soft, non tender, no organomegaly, other - g tube in place, no surrounding erythema Genitourinary: other - no boss in place Extremities: no cyanosis, no edema Skin: no rash Musculoskeletal: atrophy no new micro. Rads: atient : DOREEN BOURGEOIS Referring Physician: SUNG BREWER M.D. ID Number: [id number] Service Date: 09/09/16 : 1955 Report Date: 09/09/16 Gender: M Accession No.: [id number] Location: Procedure: CT Chest no Contrast Clinical Indication: COUGH Technique: Spiral acquisitions obtained through the chest. No IV contrast utilized, reason not stated. Multiplanar reconstructions generated. Total dose length product 79 mGycm. CTDIvol(s) 17 mGy. Dose reduction achieved using automated exposure control Comparison: Reference made to prior chest radiographs Findings:In the left upper lobe, confirming findings suspected on previous chest radiographs, there is a 4.3 cm diameter thickwalled cavity, containing a 3.4 cm round opacity the inferior borders of the cavity demonstrate scarring and some bronchiectasis. In the right upper lobe, there is a smaller 18 mm diameter thickwalled cavity, with a central 9 mm nodule. Bullous changes are seen in both upper lobes. There is extensive bronchiectasis is seen in the right upper lobe. Large areas of honeycombing are seen in the posterior right upper lobe in the right middle lobe, and throughout much of the right lower lobe. Confluent opacities with air bronchograms are also seen in much of the right lower lobe. Honeycombing is also seen in the posterior left upper lobe. Reticular opacities in the left lower lobe may also represent areas of honeycombing, although this is less definite. There is considerable posterior dependent atelectasis and small bilateral pleural effusions. There is also thickening or fluid within the bilateral major fissures. Small bulla are seen in the right lung apex The heart is borderline enlarged. No pericardial effusion demonstrated. No mediastinal or hilar mass or adenopathy. Calcified nodes are seen in the subcarinal region. Right paratracheal nodes are prominent but not frankly enlarged. No thoracic aortic aneurysm. The main pulmonary artery is dilated, measures 4 cm in diameter. The thyroid is diffusely heterogeneous. No axillary or chest wall mass or adenopathy demonstrated, although there are prominent axillary nodes bilaterally. Multiple left rib fracture deformities are demonstrated, some ununited or incompletely united. There is fairly extensive degenerative thoracic spondylosis. The included upper, viscera are unremarkable except for the presence of a gastrostomy tube. Impression: 4.3 cm thick walled cavity in the left upper lobe with central large nodule, consistent with cavitary lesion, cyst or bulla containing a fungus ball Similar smaller 18 mm cavity with central nodule in the right upper lobe, likewise also probably a cavity or cyst with a fungus ball. Extensive chronic changes, with extensive bilateral honeycombing indicative of chronic interstitial fibrosis. Other bilateral confluent opacities, greater in the right lung, may represent areas of consolidation versus areas of confluent fibrosis. Small bilateral pleural effusions Calcifications in the left upper lobe fibrotic areas as well as subcarinal lymph nodes indicate old granulomatous disease Bullous changes in the right lung apex Borderline cardiomegaly Dilated pulmonary artery, consistent with pulmonary arterial hypertension Multiple old healed left rib fracture deformities The CT scanner at [facility] is accredited by the [employer] and the scans are performed using protocols designed to limit radiation exposure to as low as reasonably achievable to attain images of sufficient resolution adequate for diagnostic evaluation. Dictated By: DOREEN YUNG M.D. Electronically Signed By: DOREEN YUNG M.D. no new labs. Leukocytosis of 24 on admission on 09/04/16 normalized within 5 days of admission. WBC 8 on 09/16/16. Current Medications Medications (Trade) Dose Ordered Sig/Cesar Route PRN Reason Start Time Stop Time Status Last Admin Dose Admin Acetaminophen (Tylenol) 650 mg Q4H PRN ORAL Mild Pain 09/11/16 03:45 10/11/16 03:44 09/19/16 21:08 Acetaminophen (Tylenol) 650 mg Q4H PRN RECTAL Prn Headache/Temp > 101 09/11/16 04:45 10/11/16 04:44 Heparin Sodium (Porcine) (Heparin 5000 units/ml) 5,000 units EVERY 12 HOURS SUBQ 09/11/16 09:00 10/11/16 08:59 09/20/16 10:11 Lansoprazole (Prevacid) 30 mg DAILY GT 09/11/16 09:00 10/11/16 08:59 09/20/16 10:11 Levofloxacin (Levaquin) 750 mg Q24H GT 09/19/16 18:00 09/20/16 18:01 09/19/16 17:28 Ondansetron HCl (Zofran) 4 mg Q6H PRN IVP Nausea & Vomiting 09/11/16 07:30 10/11/16 07:29 Polyethylene Glycol (Miralax) 17 gm DAILYPRN PRN ORAL Constipation 09/11/16 19:30 10/11/16 19:29 Vernon Rice M.D. Sep 20, 2016 16:46
[2016-09-20 17:59] VITALS: BP 104/62
[2016-09-20 20:00] VITALS: BP 112/64
[2016-09-21 04:19] VITALS: BP 110/62
[2016-09-21] MEDS: Heparin 5000 units/ml inj SUBQ SCH ×2 (08:36→20:22)
[2016-09-21 08:43] VITALS: BP 104/68
[2016-09-21 09:01] LABS: BASOPHILS % (AUTO) 1.7 % (0.0-2.0); EOSINOPHILS % (AUTO) 2.4 % (0.0-3.0); LYMPHOCYTES % (AUTO) 27.8 % (20.0-45.0); MEAN CORPUSCULAR HEMOGLOBIN 29.3 PG (27.0-31.0); MEAN CORPUSCULAR VOLUME 92 FL (80-99); MEAN PLATELET VOLUME 6.2 FL (6.5-10.1); MONOCYTES % (AUTO) 14.9 % (1.0-10.0); NEUTROPHILS % (AUTO) 53.2 % (45.0-75.0); PLATELET COUNT 333 K/UL (150-450); RED BLOOD COUNT 3.45 M/UL (4.70-6.10); WHITE BLOOD COUNT 5.7 K/UL (4.8-10.8)
[2016-09-21 09:16] LABS: ANION GAP 12 (5-15); CALCIUM 10.1 mg/dL (8.6-10.2); CARBON DIOXIDE 26 mEQ/L (20-30); CHLORIDE 96 mEQ/L (98-107); CREATININE 0.8 mg/dL (0.7-1.2); GLOMERULAR FILTRATION RATE > 60 mL/min (>60); HEMOLYSIS 8; POTASSIUM 4.6 mEQ/L (3.4-4.9); SODIUM 134 mEQ/L (135-145)
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
[2016-09-21] MEDS ORDERED: LANSOPRAZOLE30 MG GT (11:31)
--- NOTE | 2016-09-21 11:32 | Discharge Instructions ---
Discharge Instructions Discharge Instructions Follow up with: MD at he facility Call MD/Return to Hospital if: cough, fevers, Shortness of breath, chest pain Diet: tube feeding Special Instructions repeat CT chest in 2 months For Congestive Heart Failure Reminder Report to your physician any weight gain of 5 pounds or more in one week. Victor M ([facility]yl[facility] Caballero NP Sep 21, 2016 11:32
[2016-09-21 12:34] VITALS: BP 101/69
[2016-09-21 16:19] VITALS: BP 107/70
--- NOTE | 2016-09-21 16:48 | Infectious Diseases Prog Note ---
Assessment/Plan Assessment/Plan ASSESSMENT: 60 y/o male with: // DANIE thick-walled cavity with presumed fungus ball - SCx Nl resp watson, galactomannan pending - negative: legionella has large DANIE 4cm cavity and a smaller r sided cavity. 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 will need repeat CT chest in the next 2 months to follow up whether there still appears to be some degree of inflammation around that DANIE cavity and the r sided cavity. If this is the case , and his pending galactomannan proves to be positive, then at that time would need treatment for CCPA likely with voriconazole for 6-12 months depending on radiographic response. If on f/u imaging that is not the case, then systemic antifungal therapy for a simple aspergilloma--with resolved HCAP--would not be indicated. His imaging is not consistent with pulmonary abscess, so don't recommend long course of levofloxacin presently. //RLL pneumonia--s/p 14 days abx course with levofloxacin completed on 09/20/16, with normalization of WBC from initial 25k, afebrile. // Negative HIV // Leukocytosis - resolved // Fever - resolved // Chronic interstitial fibrosis c/b severe bronchiectasis and chronic cavitary lung disease // h/o polysubstance abuse // VRE colonized // NKDA // Full Code PLAN: - (09/20/16) s/p devaquin d# 10 ( ABX d# 14) ( 09/11 SP IV vancomycin, meropenem ) - f/u galactomanan - repeat CT chest as outpatient in 2 months to r/o Chronic cavitary pulmonary aspergillosis vs simple aspergilloma. - monitor CBC, temperatures, re-culture if acute change - monitor BMP - monitor CXR stable for discharge from infectious diseases standpoint. Subjective ROS Limited/Unobtainable: Yes Allergies: Coded Allergies: No Known Allergies (Unverified , 09/04/16) Objective Vital Signs Last 24 Hour Vital Signs Date Time Temp Pulse Resp B/P Pulse Ox O2 Delivery O2 Flow Rate FiO2 09/21/16 16:19 97.7 77 18 107/70 98 Room Air 09/21/16 12:34 98.1 77 19 101/69 99 Room Air 09/21/16 08:43 97.5 76 18 104/68 98 Room Air 09/21/16 04:19 98.4 82 18 110/62 94 Room Air 09/20/16 20:00 98.0 80 18 112/64 96 Room Air 09/20/16 17:59 97.9 79 18 104/62 100 Room Air Height (Feet): 5 Height (Inches): 9.00 Weight (Pounds): 141 Objective General Appearance: no acute distress HEENT: anicteric, other - prior trach site healing with sutures in place Respiratory/Chest: other - decreased breath sound at L upper lung field Cardiovascular: normal rate, regular rhythm Abdomen: soft, non tender, no organomegaly, other - g tube in place, no surrounding erythema Genitourinary: other - no boss in place Extremities: no cyanosis, no edema Skin: no rash Musculoskeletal: atrophy Micro: pending SCrag, cocci Ab, galactomann Rads: atient : DOREEN BOURGEOIS Referring Physician: SUNG BREWER M.D. ID Number: [id number] Service Date: 09/09/16 : 1955 Report Date: 09/09/16 Gender: M Accession No.: [id number] Location: Procedure: CT Chest no Contrast Clinical Indication: COUGH Technique: Spiral acquisitions obtained through the chest. No IV contrast utilized, reason not stated. Multiplanar reconstructions generated. Total dose length product 79 mGycm. CTDIvol(s) 17 mGy. Dose reduction achieved using automated exposure control Comparison: Reference made to prior chest radiographs Findings:In the left upper lobe, confirming findings suspected on previous chest radiographs, there is a 4.3 cm diameter thickwalled cavity, containing a 3.4 cm round opacity the inferior borders of the cavity demonstrate scarring and some bronchiectasis. In the right upper lobe, there is a smaller 18 mm diameter thickwalled cavity, with a central 9 mm nodule. Bullous changes are seen in both upper lobes. There is extensive bronchiectasis is seen in the right upper lobe. Large areas of honeycombing are seen in the posterior right upper lobe in the right middle lobe, and throughout much of the right lower lobe. Confluent opacities with air bronchograms are also seen in much of the right lower lobe. Honeycombing is also seen in the posterior left upper lobe. Reticular opacities in the left lower lobe may also represent areas of honeycombing, although this is less definite. There is considerable posterior dependent atelectasis and small bilateral pleural effusions. There is also thickening or fluid within the bilateral major fissures. Small bulla are seen in the right lung apex The heart is borderline enlarged. No pericardial effusion demonstrated. No mediastinal or hilar mass or adenopathy. Calcified nodes are seen in the subcarinal region. Right paratracheal nodes are prominent but not frankly enlarged. No thoracic aortic aneurysm. The main pulmonary artery is dilated, measures 4 cm in diameter. The thyroid is diffusely heterogeneous. No axillary or chest wall mass or adenopathy demonstrated, although there are prominent axillary nodes bilaterally. Multiple left rib fracture deformities are demonstrated, some ununited or incompletely united. There is fairly extensive degenerative thoracic spondylosis. The included upper, viscera are unremarkable except for the presence of a gastrostomy tube. Impression: 4.3 cm thick walled cavity in the left upper lobe with central large nodule, consistent with cavitary lesion, cyst or bulla containing a fungus ball Similar smaller 18 mm cavity with central nodule in the right upper lobe, likewise also probably a cavity or cyst with a fungus ball. Extensive chronic changes, with extensive bilateral honeycombing indicative of chronic interstitial fibrosis. Other bilateral confluent opacities, greater in the right lung, may represent areas of consolidation versus areas of confluent fibrosis. Small bilateral pleural effusions Calcifications in the left upper lobe fibrotic areas as well as subcarinal lymph nodes indicate old granulomatous disease Bullous changes in the right lung apex Borderline cardiomegaly Dilated pulmonary artery, consistent with pulmonary arterial hypertension Multiple old healed left rib fracture deformities The CT scanner at [facility] is accredited by the [employer] and the scans are performed using protocols designed to limit radiation exposure to as low as reasonably achievable to attain images of sufficient resolution adequate for diagnostic evaluation. Laboratory Tests Test 09/20/16 17:00 09/21/16 07:00 Anti-Nuclear Antibody Screen Pending c-ANCA Titer Pending p-ANCA Titer Pending Coccidioides Antibody (Comp Fix) Pending Cryptococcus Antigen Pending White Blood Count 5.7 K/UL (4.8-10.8) Red Blood Count 3.45 M/UL (4.70-6.10) L Hemoglobin 10.1 G/DL (14.2-18.0) L Hematocrit 31.7 % (42.0-52.0) L Mean Corpuscular Volume 92 FL (80-99) Mean Corpuscular Hemoglobin 29.3 PG (27.0-31.0) Mean Corpuscular Hemoglobin Concent 32.0 G/DL (32.0-36.0) Red Cell Distribution Width 14.0 % (11.6-14.8) Platelet Count 333 K/UL (150-450) Mean Platelet Volume 6.2 FL (6.5-10.1) L Neutrophils (%) (Auto) 53.2 % (45.0-75.0) Lymphocytes (%) (Auto) 27.8 % (20.0-45.0) Monocytes (%) (Auto) 14.9 % (1.0-10.0) H Eosinophils (%) (Auto) 2.4 % (0.0-3.0) Basophils (%) (Auto) 1.7 % (0.0-2.0) Sodium Level 134 mEQ/L (135-145) L Potassium Level 4.6 mEQ/L (3.4-4.9) Chloride Level 96 mEQ/L (98-107) L Carbon Dioxide Level 26 mEQ/L (20-30) Anion Gap 12 (5-15) Blood Urea Nitrogen 16 mg/dL (7-23) Creatinine 0.8 mg/dL (0.7-1.2) Estimat Glomerular Filtration Rate > 60 mL/min (>60) Glucose Level 90 mg/dL (74-106) Calcium Level 10.1 mg/dL (8.6-10.2) Current Medications Medications (Trade) Dose Ordered Sig/Cesar Route PRN Reason Start Time Stop Time Status Last Admin Dose Admin Acetaminophen (Tylenol) 650 mg Q4H PRN ORAL Mild Pain 09/11/16 03:45 10/11/16 03:44 09/19/16 21:08 Acetaminophen (Tylenol) 650 mg Q4H PRN RECTAL Prn Headache/Temp > 101 09/11/16 04:45 10/11/16 04:44 Heparin Sodium (Porcine) (Heparin 5000 units/ml) 5,000 units EVERY 12 HOURS SUBQ 09/11/16 09:00 10/11/16 08:59 8/5/17 08:36 Lansoprazole (Prevacid) 30 mg DAILY GT 09/11/16 09:00 10/11/16 08:59 09/21/16 08:34 Ondansetron HCl (Zofran) 4 mg Q6H PRN IVP Nausea & Vomiting 09/11/16 07:30 10/11/16 07:29 Polyethylene Glycol (Miralax) 17 gm DAILYPRN PRN ORAL Constipation 09/11/16 19:30 10/11/16 19:29 Vernon Rice M.D. Sep 21, 2016 16:48
[2016-09-21 20:00] VITALS: BP 104/67
[2016-09-22] VITALS: BP 108/68
[2016-09-22 04:00] VITALS: BP 115/68
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
[2016-09-22 08:00] VITALS: BP 119/72
[2016-09-22] MEDS: Heparin 5000 units/ml inj SUBQ SCH ×2 (09:00→20:21)
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
[2016-09-22 12:00] VITALS: BP 118/75
[2016-09-22 16:00] VITALS: BP 90/51
--- NOTE | 2016-09-22 16:15 | Infectious Diseases Prog Note ---
Assessment/Plan Assessment/Plan ASSESSMENT: 60 y/o male with: // DANIE thick-walled cavity with presumed fungus ball - SCx Nl resp watson, galactomannan pending - negative: legionella has large DANIE 4cm cavity and a smaller r sided cavity. 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 will need repeat CT chest in the next 2 months to follow up whether there still appears to be some degree of inflammation around that DANIE cavity and the r sided cavity. If this is the case , and his pending galactomannan proves to be positive, then at that time would need treatment for CCPA likely with voriconazole for 6-12 months depending on radiographic response. If on f/u imaging that is not the case, then systemic antifungal therapy for a simple aspergilloma--with resolved HCAP--would not be indicated. His imaging is not consistent with pulmonary abscess, so don't recommend long course of levofloxacin presently. //RLL pneumonia--s/p 14 days abx course with levofloxacin completed on 09/20/16, with normalization of WBC from initial 25k, afebrile. // Negative HIV // Leukocytosis - resolved // Fever - resolved // Chronic interstitial fibrosis c/b severe bronchiectasis and chronic cavitary lung disease // h/o polysubstance abuse // VRE colonized // NKDA // Full Code PLAN: -monitor off abx - (09/20/16) s/p devaquin d# 10 ( ABX d# 14) ( 09/11 SP IV vancomycin, meropenem ) - f/u galactomanan - repeat CT chest as outpatient in 2 months to r/o Chronic cavitary pulmonary aspergillosis vs simple aspergilloma. - monitor CBC, temperatures, re-culture if acute change - monitor BMP - monitor CXR stable for discharge from infectious diseases standpoint. Subjective ROS Limited/Unobtainable: Yes Allergies: Coded Allergies: No Known Allergies (Unverified , 09/04/16) Objective Vital Signs Last 24 Hour Vital Signs Date Time Temp Pulse Resp B/P Pulse Ox O2 Delivery O2 Flow Rate FiO2 09/22/16 13:56 98.2 09/22/16 12:00 98.2 84 20 118/75 95 Room Air 09/22/16 08:00 97.9 80 20 119/72 100 Room Air 09/22/16 04:00 98.1 76 18 115/68 99 Room Air 09/22/16 00:00 97.5 74 18 108/68 98 Room Air 09/21/16 20:00 97.9 76 18 104/67 Room Air 09/21/16 16:19 97.7 77 18 107/70 98 Room Air Height (Feet): 5 Height (Inches): 9.00 Weight (Pounds): 150 Objective General Appearance: no acute distress HEENT: anicteric, other - prior trach site healing with sutures in place Respiratory/Chest: other - decreased breath sound at L upper lung field Cardiovascular: normal rate, regular rhythm Abdomen: soft, non tender, no organomegaly, other - g tube in place, no surrounding erythema Genitourinary: other - no boss in place Extremities: no cyanosis, no edema Skin: no rash Musculoskeletal: atrophy Current Medications Medications (Trade) Dose Ordered Sig/Cesar Route PRN Reason Start Time Stop Time Status Last Admin Dose Admin Acetaminophen (Tylenol) 650 mg Q4H PRN ORAL Mild Pain 09/11/16 03:45 10/11/16 03:44 09/22/16 12:57 Acetaminophen (Tylenol) 650 mg Q4H PRN RECTAL Prn Headache/Temp > 101 09/11/16 04:45 10/11/16 04:44 Heparin Sodium (Porcine) (Heparin 5000 units/ml) 5,000 units EVERY 12 HOURS SUBQ 09/11/16 09:00 10/11/16 08:59 09/22/16 09:00 Lansoprazole (Prevacid) 30 mg DAILY GT 09/11/16 09:00 10/11/16 08:59 09/22/16 08:59 Ondansetron HCl (Zofran) 4 mg Q6H PRN IVP Nausea & Vomiting 09/11/16 07:30 10/11/16 07:29 Polyethylene Glycol (Miralax) 17 gm DAILYPRN PRN ORAL Constipation 09/11/16 19:30 10/11/16 19:29 Vernon Rice M.D. Sep 22, 2016 16:15
[2016-09-22 20:00] VITALS: BP 110/68
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
[2016-09-23] VITALS: BP 106/62
[2016-09-23 04:00] VITALS: BP 107/67
[2016-09-23] MEDS: Heparin 5000 units/ml inj SUBQ SCH (08:23)
[2016-09-23 08:51] VITALS: BP 111/67
[2016-09-23 12:10] LABS: CRYPTOCOCCAL ANTIGEN SERUM Negative (Negative)
[2016-09-23 12:45] VITALS: BP 113/70
--- NOTE | 2016-09-23 12:47 | Infectious Diseases Prog Note ---
Assessment/Plan Assessment/Plan ASSESSMENT: 60 y/o male with: // DANIE thick-walled cavity with presumed fungus ball - SCx Nl resp watson, galactomannan pending, serum CrAg neg - negative: legionella has large DANIE 4cm cavity and a smaller r sided cavity. 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 will need repeat CT chest in the next 2 months to follow up whether there still appears to be some degree of inflammation around that DANIE cavity and the r sided cavity. If this is the case , and his pending galactomannan proves to be positive, then at that time would need treatment for CCPA likely with voriconazole for 6-12 months depending on radiographic response. If on f/u imaging that is not the case, then systemic antifungal therapy for a simple aspergilloma--with resolved HCAP--would not be indicated. His imaging is not consistent with pulmonary abscess, so don't recommend long course of levofloxacin presently. //RLL pneumonia--s/p 14 days abx course with levofloxacin completed on 09/20/16, with normalization of WBC from initial 25k, afebrile. // Negative HIV // Leukocytosis - resolved // Fever - resolved // Chronic interstitial fibrosis c/b severe bronchiectasis and chronic cavitary lung disease // h/o polysubstance abuse // VRE colonized // NKDA // Full Code PLAN: -monitor off abx - (09/20/16) s/p devaquin d# 10 ( ABX d# 14) ( 09/11 SP IV vancomycin, meropenem ) - f/u galactomanan - repeat CT chest as outpatient in 2 months to r/o Chronic cavitary pulmonary aspergillosis vs simple aspergilloma. - monitor CBC, temperatures, re-culture if acute change - monitor BMP - monitor CXR stable for discharge from infectious diseases standpoint. Subjective ROS Limited/Unobtainable: Yes Allergies: Coded Allergies: No Known Allergies (Unverified , 09/04/16) Objective Vital Signs Last 24 Hour Vital Signs Date Time Temp Pulse Resp B/P Pulse Ox O2 Delivery O2 Flow Rate FiO2 09/23/16 08:51 97.9 79 20 111/67 98 Room Air 09/23/16 04:00 97.9 80 18 107/67 98 Room Air 09/23/16 00:00 98.4 82 18 106/62 98 Room Air 09/22/16 20:00 98.4 82 18 110/68 98 Room Air 09/22/16 16:00 97.9 83 20 90/51 97 Room Air 09/22/16 13:56 98.2 Height (Feet): 5 Height (Inches): 9.00 Weight (Pounds): 140 Objective General Appearance: no acute distress HEENT: anicteric, other - prior trach site healing with sutures in place Respiratory/Chest: other - decreased breath sound at L upper lung field Cardiovascular: normal rate, regular rhythm Abdomen: soft, non tender, no organomegaly, other - g tube in place, no surrounding erythema Genitourinary: other - no boss in place Extremities: no cyanosis, no edema Skin: no rash Musculoskeletal: atrophy serum CrAG negative Serum Cocci Ab pending Serum galactomannan pending Current Medications Medications (Trade) Dose Ordered Sig/Cesar Route PRN Reason Start Time Stop Time Status Last Admin Dose Admin Acetaminophen (Tylenol) 650 mg Q4H PRN ORAL Mild Pain 09/11/16 03:45 10/11/16 03:44 09/22/16 12:57 Acetaminophen (Tylenol) 650 mg Q4H PRN RECTAL Prn Headache/Temp > 101 09/11/16 04:45 10/11/16 04:44 Heparin Sodium (Porcine) (Heparin 5000 units/ml) 5,000 units EVERY 12 HOURS SUBQ 09/11/16 09:00 10/11/16 08:59 09/23/16 08:23 Lansoprazole (Prevacid) 30 mg DAILY GT 09/11/16 09:00 10/11/16 08:59 09/23/16 08:22 Ondansetron HCl (Zofran) 4 mg Q6H PRN IVP Nausea & Vomiting 09/11/16 07:30 10/11/16 07:29 Polyethylene Glycol (Miralax) 17 gm DAILYPRN PRN ORAL Constipation 09/11/16 19:30 10/11/16 19:29 Vernon Rice M.D. Sep 23, 2016 12:47
[2016-09-23 16:29] VITALS: BP 117/75
[2016-09-23 20:00] VITALS: BP 115/76
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
--- NOTE | 2016-09-24 08:48 | Discharge Summary ---
Discharge Summary Hospital Course Date of Admission Sep 04, 2016 at 18:59 Date of Discharge Sep 23, 2016 at 20:30 Admitting Diagnosis sepsis, AMS HPI Saeid Liriano is a 60 year old male who was admitted on Sep 04, 2016 at 18:59 for Sepsis,Altered Mental Status Hospital Course dc summary #[id number] Discharge Medications New Medications: Lansoprazole* (Lansoprazole*) 30 Mg Capsule.dr 30 MG GT DAILY, #30 CAP Continued Medications: Tramadol Hcl* (Ultram*) 50 Mg Tablet 50 MG GT Q6H PRN for Moderate Pain (Pain Scale 4-6) Discharge Condition Upon Discharge: stable Discharge Disposition Patient was discharged to SNF Discharge Diagnoses: Discharge Instructions Discharge Instructions Follow up with: MD at he facility Call MD/Return to Hospital if: cough, fevers, Shortness of breath, chest pain Sylvia Dow NP ([place]) Sep 24, 2016 08:48
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
== END 2016-09-23 20:30 | DRG 720 ==
LOC: EDBD 17:22 → EMR 18:00 → ICU 18:59 → EDBEDREQ 19:47 → 2E 09-08 17:08 → 4W 09-11 02:01 → 4E 09-14 14:09 → 4W 09-17 08:01
PROC: 0CJS8ZZ Inspection of Larynx, Via Natural or Artificial Opening Endoscopic (ICD-10-PCS; principal; 2016-09-06)
DX: A41.9 Sepsis, unspecified organism (principal); N17.0 Acute kidney failure with tubular necrosis; G93.40 Encephalopathy, unspecified; B44.1 Other pulmonary aspergillosis; Z93.0 Tracheostomy status; J18.9 Pneumonia, unspecified organism; J84.10 Pulmonary fibrosis, unspecified; E87.0 Hyperosmolality and hypernatremia; E11.649 Type 2 diabetes mellitus with hypoglycemia without coma; R13.10 Dysphagia, unspecified; D63.8 Anemia in other chronic diseases classified elsewhere; Z93.1 Gastrostomy status; E86.0 Dehydration; Z87.898 Personal history of other specified conditions
CPT/HCPCS: 36415; 36600; 70450; 71010; 71250; 74230; 76700; 76775; 78266; 80048; 80053; 80150; 80202; 81003; 82140; 82164; 82248; 82270; 82378; 82550; 82553; 82607; 82728; 82746; 82803; 82962; 83540; 83550; 83605; 83615; 83735; 83880; 84100; 84133; 84300; 84484; 84550; 85007; 85025; 85044; 85060; 85610; 85651; 85730; 86021; 86039; 86635; 86703; 86713; 86850; 86900; 86901; 86920; 87040; 87070; 87081; 87086; 87205; 87449; 89050; 93005; 93306; 93970; 94664; 94760